=== PATIENT | female | born 1955 | race Caucasian/White ===

== ENCOUNTER 2016-10-20 06:44 | Day surgery (SDC) | payer OTHER ==
[2016-10-17 15:53] VITALS: BMI 27.4
[~2016-10-20 06:44] MED LIST: LACTATED RINGERS 1,000 ML IV SCH; LIDOCAINE 1% 20 ML VIAL (10MG/ML) FOR IV START INTRADERMA PRN
[2016-10-20 07:11] VITALS: TEMP 98
[2016-10-20] MEDS ORDERED: LACTATED RINGERS 1,000 ML IV ONE (07:21)
[2016-10-20] MEDS ORDERED: LIDOCAINE 1% 20 ML VIAL (10MG/ML) FOR IV START INTRADERMA ONE (07:22)
[2016-10-20 07:25] LABS: Glucose,Whole Blood 195 mg/dL (75-99)
[2016-10-20] MEDS ORDERED: ONDANSETRON 4 MG/2 ML VIAL IVP ONE (07:37)
[2016-10-20] MEDS ORDERED: PROPOFOL 10 MG/ML 20 ML VIAL IV ONE (07:54)
--- NOTE | 2016-10-20 08:18 | P.PCN ---
Date of Procedure: 10/20/16 Procedure(s) Performed: BRIEF HISTORY: Patient is a 60-year-old pleasant white female, scheduled for an elective colonoscopy as a part of screening for colorectal neoplasia. She does have family history of colon cancer diagnosed in her father at age 60. Her last colonoscopy was 6 years ago. PROCEDURE PERFORMED: Colonoscopy with snare polypectomy. PREOPERATIVE DIAGNOSIS: Screening for colon cancer and family history of colon cancer. IV sedation per Anesthesia. PROCEDURE: After informed consent was obtained, the patient, was brought into the endoscopy unit. IV conscious sedation was administered by Anesthesia under continuous monitoring. Digital rectal examination was normal Initially the Olympus CF-160 flexible video colonoscope was then inserted in the rectum, gradually advanced into the cecum without any difficulty. Careful examination was performed as the scope was gradually being withdrawn. Ileocecal valve and the appendiceal orifice were visualized and appeared normal. Prep was excellent. Mucosa of the cecum appeared normal. In the ascending colon there was a 1 polyp removed by snare polypectomy. Rest of the, ascending colon, transverse colon, descending colon, sigmoid colon, and rectum appeared normal. Retroflexion was performed in the rectum and no lesions were seen. Scattered sigmoid diverticulosis seen. The patient tolerated the procedure well. IMPRESSION: 1 in mid ascending colon polyp status post polypectomy Scattered sigmoid diverticulosis. Rest of the colon appeared normal. RECOMMENDATIONS: Findings of this examination were discussed with the patient as well as a family. Advised to follow with the biopsy results. If the biopsies revealed a tubular adenoma she can have a repeat colonoscopy in 5 years.
[2016-10-20 08:25] VITALS: RESP 18
[2016-10-20 08:56] LABS: Glucose,Whole Blood 190 mg/dL (75-99)
[2016-10-20 09:22] VITALS: BP 122/70; PULSE 80
== END 2016-10-20 09:25 | disposition home or self-care (01) ==
LOC: ORWHC2ENDO 06:44
PROVIDERS: ATTEND Internal Medicine Gastroenterology
DX: Z12.11 Encounter for screening for malignant neoplasm of colon (principal); D12.2 Benign neoplasm of ascending colon; K57.30 Diverticulosis of large intestine without perforation or abscess without bleeding; I10 Essential (primary) hypertension; E78.5 Hyperlipidemia, unspecified; E11.9 Type 2 diabetes mellitus without complications; E07.9 Disorder of thyroid, unspecified; K21.9 Gastro-esophageal reflux disease without esophagitis; Z80.0 Family history of malignant neoplasm of digestive organs; Z88.2 Allergy status to sulfonamides; Z79.82 Long term (current) use of aspirin; Z79.84 Long term (current) use of oral hypoglycemic drugs; Z79.4 Long term (current) use of insulin; Z79.83 Long term (current) use of bisphosphonates; Z79.899 Other long term (current) drug therapy
CPT/HCPCS: 88305; 45385; J2405; J2704; 99153

== ENCOUNTER 2017-05-18 10:15 | Emergency (ER) | payer MEDICARE, OTHER ==
[2017-05-18 10:25] VITALS: RESP 20
--- NOTE | 2017-05-18 10:40 | ED ---
General Adult HPI - General Chief complaint: Urogenital Stated complaint: poss uti Time Seen by Provider: 05/18/17 10:25 Source: patient, RN notes reviewed Mode of arrival: ambulatory Limitations: no limitations - History of Present Illness Initial comments: Patient 61-year-old female who presents emergency room today with a chief complaint of increased pressure on urination this morning. Does admit to slight burning sensation. She has admit that she got up and right bathroom a few times. She states this is not completely unusual for her. Patient does not that she's had urinary tract infection. Gestation worried about this this morning. Patient denies any other complaints or associated symptoms at this time. Patient denies any recent fever, chills, shortness of breath, chest pain, back pain, abdominal pain, nausea or vomiting, numbness or tingling, dysuria or hematuria, constipation or diarrhea, headaches or visual changes, or any other complaints. - Related Data Home Medications Medication Instructions Recorded Confirmed Ascorbic Acid [Vitamin C] 1,000 mg PO BID 01/12/16 05/18/17 Aspirin 325 mg PO HS 01/12/16 05/18/17 Benazepril HCl 20 mg PO DAILY 01/12/16 05/18/17 Calcium 315 mg PO TID 01/12/16 05/18/17 Cholecalciferol [Vitamin D3] 1,000 unit PO HS 01/12/16 05/18/17 Cyanocobalamin [Vitamin B-12 1,000 mcg SQ QMONTH 01/12/16 05/18/17 Injection] Docusate [Colace] 200 mg PO 01/12/16 05/18/17 Dubicaine 1% Ointment 1 applic RECTAL DAILY PRN 01/12/16 05/18/17 Eucerin 1 applic TOPICAL DAILY PRN 01/12/16 05/18/17 Ibandronate Sodium [Boniva] 150 mg PO QMONTH 01/12/16 05/18/17 Insulin Glargine [Lantus] 25 unit SQ HS 01/12/16 05/18/17 Ketotifen 0.025% Ophth Soln 1 drop BOTH EYES BID PRN 01/12/16 05/18/17 [Zaditor] Levothyroxine Sodium [Synthroid] 100 mcg PO DAILY 01/12/16 05/18/17 Mupirocin 2% Oint [Bactroban 2% 1 applic TOPICAL DAILY PRN 01/12/16 05/18/17 Oint] Pantoprazole Sodium [Protonix] 40 mg PO DAILY 01/12/16 05/18/17 Polyethylene Glycol 3350 [Miralax] 25.5 gm PO DAILY 01/12/16 05/18/17 Pregabalin [Lyrica] 75 mg PO TID 01/12/16 05/18/17 Saxagliptin HCl [Onglyza] 5 mg PO DAILY 01/12/16 05/18/17 Simvastatin [Zocor] 80 mg PO HS 01/12/16 05/18/17 Solifenacin Succinate [Vesicare] 10 mg PO DAILY@1200 01/12/16 05/18/17 Tretinoin 1 applic TOPICAL HS 01/12/16 05/18/17 amLODIPine [Norvasc] 10 mg PO QAM 01/12/16 05/18/17 glipiZIDE [Glucotrol] 5 mg PO AC-BRKFST 01/12/16 05/18/17 glipiZIDE [Glucotrol] 10 mg PO AC-BID@1200,1800 01/12/16 05/18/17 metFORMIN HCL [Glucophage] 1,000 mg PO BID 01/12/16 05/18/17 Betamethasone Dipropionate 1 applic TOPICAL BID 05/18/17 05/18/17 [Betamethasone Dipropionate 0.05%] Clobetasol Propionate [Temovate 1 applic TOPICAL DAILY PRN 05/18/17 05/18/17 0.05% Cream] Cyclobenzaprine [Flexeril] 5 mg PO HS PRN 05/18/17 05/18/17 Ferrous Gluconate 324 mg PO TID 05/18/17 05/18/17 Hydrocortisone Cream 1 applic TOPICAL BID PRN 05/18/17 05/18/17 [Hydrocortisone 2.5% Cream] [place]-3 Fatty Acids/Fish Oil [Fish 1 cap PO DAILY@1200 05/18/17 05/18/17 Oil 1,000 mg Softgel] Polyvinyl 1 drop BOTH EYES DAILY PRN 05/18/17 05/18/17 Venlafaxine HCl [Effexor XR] 225 mg PO DAILY 05/18/17 05/18/17 hydrOXYzine PAMOATE [Vistaril] 25 mg PO HS 05/18/17 05/18/17 Previous Rx's Medication Instructions Recorded Nitrofurantoin Monohyd/M-Cryst 100 mg PO Q12HR #14 cap 05/18/17 [Macrobid] Phenazopyridine [Pyridium] 100 mg PO TID 3 Days 05/18/17 Tamsulosin [Flomax] 0.4 mg PO DAILY #10 cap 05/18/17 Allergies Allergy/AdvReac Type Severity Reaction Status Date / Time Sulfa (Sulfonamide AdvReac Rash/Hives Verified 05/18/17 10:34 Antibiotics) sulfamethoxazole AdvReac Rash/Hives Verified 05/18/17 10:34 [From Bactrim] trimethoprim [From Bactrim] AdvReac Rash/Hives Verified 05/18/17 10:34 Review of Systems ROS Statement: Those systems with pertinent positive or pertinent negative responses have been documented in the HPI. ROS Other: All systems not noted in ROS Statement are negative. Past Medical History Past Medical History: Diabetes Mellitus, GERD/Reflux, Hyperlipidemia, Hypertension, Thyroid Disorder Additional Past Medical History / Comment(s): kidney stones; non healing wounds R shoulder History of Any Multi-Drug Resistant Organisms: MRSA Date of last positivie culture/infection: 2015 MDRO Source:: buttock Past Surgical History: Cholecystectomy, Hysterectomy, Tonsillectomy Additional Past Surgical History / Comment(s): lithotripsy; colonoscopies; cataracts Past Anesthesia/Blood Transfusion Reactions: Motion Sickness, Postoperative Nausea & Vomiting (PONV) Past Psychological History: Anxiety, Depression Smoking Status: Never smoker Past Alcohol Use History: None Reported Past Drug Use History: None Reported - Past Family History Father Family Medical History: Cancer General Exam - General Exam Comments Initial Comments: General: The patient is awake and alert, in no distress, and does not appear acutely ill. Eye: Pupils are equal, round and reactive to light, extra-ocular movements are intact. No nystagmus. There is normal conjunctiva bilaterally. No signs of icterus. Ears, nose, mouth and throat: There are moist mucous membranes and no oral lesions. Neck: The neck is supple, there is no tenderness or JVD. Cardiovascular: There is a regular rate and rhythm. No murmur, rub or gallop is appreciated. Respiratory: Lungs are clear to auscultation, respirations are non-labored, breath sounds are equal. No wheezes, stridor, rales, or rhonchi. Gastrointestinal: Soft, non-distended, non-tender abdomen without masses or organomegaly noted. There is no rebound or guarding present. No CVA tenderness. Bowel sounds are unremarkable. Musculoskeletal: Normal ROM, no tenderness. Strength 5/5. Sensation intact. Pulses equal bilaterally 2+. Neurological: A&O x 3. CN II-XII intact, There are no obvious motor or sensory deficits. Coordination appears grossly intact. Speech is normal. Skin: Skin is warm and dry and no rashes or lesions are noted. Psychiatric: Cooperative, appropriate mood & affect, normal judgment. Limitations: no limitations Course Vital Signs 05/18/17 10:23 Temperature 97.6 F Pulse Rate 95 Respiratory 20 Rate Blood Pressure 159/72 O2 Sat by Pulse 98 Oximetry Medical Decision Making - Medical Decision Making Patient reexamined at this time shows no signs of distress. Her urinalysis reviewed does show some red cells. No sign of infection at this time. Patient does admit to increased pressure. She admits to history of kidney stones. She states feels somewhat similar. She is currently comfortable. States she is comfortable being discharged home without any further workup. We cover for kidney stone placed on Flomax first issue use ibuprofen for pain as 800 mg at home. Patient will be given antibiotics cover for possible cystitis or infection along with ibuprofen for her symptoms. She is advised follow-up the urologist over the next 2 days return here to the emergency room for any symptoms increase or worsen. Patient states understanding and is in agreement. - Lab Data Lab Results 05/18/17 Range/Units 10:20 Urine Color Yellow Urine Appearance Clear (Clear) Urine pH 5.5 (5.0-8.0) Ur Specific [place] 1.016 (1.001-1.035) Urine Protein Trace H (Negative) Urine Glucose (UA) 2+ H (Negative) Urine Ketones Trace H (Negative) Urine Blood Small H (Negative) Urine Nitrite Negative (Negative) Urine Bilirubin Negative (Negative) Urine Urobilinogen <2.0 (<2.0) mg/dL Ur Leukocyte Esterase Negative (Negative) Urine RBC 27 H (0-5) /hpf Urine WBC 1 (0-5) /hpf Urine Mucus Rare H (None) /hpf Disposition Clinical Impression: Kidney stone Disposition: HOME SELF-CARE Condition: Good Instructions: Kidney Stones (ED) Additional Instructions: Please use medication as discussed. Please follow-up with family doctor in the next 2 days of symptoms have not improved. Please return to emergency room if the symptoms increase or worsen or for any other concerns. Prescriptions: Nitrofurantoin Monohyd/M-Cryst [Macrobid] 100 mg PO Q12HR #14 cap Phenazopyridine [Pyridium] 100 mg PO TID 3 Days Tamsulosin [Flomax] 0.4 mg PO DAILY #10 cap Referrals: Fuad Dickens DO [Primary Care Provider] - 1-2 days Time of Disposition: 11:27
[2017-05-18 10:42] LABS: Appearance,Urine Clear (Clear); Bilirubin,Urine Negative (Negative); Glucose,Urine (UA) 2+ (Negative); Ketones,Urine Trace (Negative); Leukocyte Esterase,Urine Negative (Negative); Mucus,Urine Rare /hpf; Nitrite,Urine Negative (Negative); PH, Urine 5.5 (5.0-8.0); Particle Count 792; Protein,Urine Trace (Negative); RBC,Urine 27 /hpf (0-5); Specific Gravity,Urine 1.016 (1.001-1.035); UA Billing (MACRO vs. MICRO) MICRO; Urobilinogen,Urine <2.0 mg/dL (<2.0); WBC,Urine 1 /hpf (0-5)
[2017-05-18 11:42] VITALS: BP 131/66; PULSE 86; TEMP 98.5
== END 2017-05-18 11:42 | disposition home or self-care (01) ==
LOC: EC 10:15
DX: N20.0 Calculus of kidney (principal); E11.9 Type 2 diabetes mellitus without complications; K21.9 Gastro-esophageal reflux disease without esophagitis; E78.5 Hyperlipidemia, unspecified; I10 Essential (primary) hypertension; E07.9 Disorder of thyroid, unspecified; F41.9 Anxiety disorder, unspecified; F32.9 Major depressive disorder, single episode, unspecified; Z79.4 Long term (current) use of insulin; Z86.14 Personal history of Methicillin resistant Staphylococcus aureus infection; Z79.82 Long term (current) use of aspirin; Z79.899 Other long term (current) drug therapy; Z88.2 Allergy status to sulfonamides
CPT/HCPCS: 81001; 87086; 99283

== ENCOUNTER → 2017-06-12 | Outpatient (CLI) | payer MEDICARE, OTHER ==
--- NOTE | 2017-06-12 10:52 | XR ---
EXAMINATION TYPE: XR abdomen 1V DATE OF EXAM: 06/12/2017 HISTORY: Pain Comparison: None. Single KUB is submitted for interpretation. Findings: Right renal calculi: None Visualized. Right ureteral calculi: None Visualized. Left renal calculi: None Visualized. Left ureteral calculi: None Visualized. Pelvic calcifications: None Visualized. Bowel gas pattern is unremarkable. No free air. No mass effects. IMPRESSION: 1. No visible calcification at this time.
== END ==
LOC: RADXRMAIN 10:22
PROVIDERS: ATTEND Urology
DX: N20.1 Calculus of ureter (principal)
CPT/HCPCS: 74000

== ENCOUNTER → 2017-12-26 | Outpatient (CLI) | payer OTHER ==
--- NOTE | 2017-12-28 13:38 | MM ---
Reason for exam: screening (asymptomatic). Last mammogram was performed 1 year and 4 months ago. History: Patient is postmenopausal and is nulliparous. Benign excisional biopsy of the right breast, 1990. Physical Findings: A clinical breast exam by your physician is recommended on an annual basis and results should be correlated with mammographic findings. MG Screening Mammo w CAD Bilateral CC and MLO view(s) were taken. Prior study comparison: September 07, 2016, mammogram, performed at [place]. The breast tissue is heterogeneously dense. This may lower the sensitivity of mammography. There is no discrete abnormality. No significant changes when compared with prior studies. ASSESSMENT: Negative, BI-RAD 1 RECOMMENDATION: Routine screening mammogram of both breasts in 1 year.
== END | disposition home or self-care (01) ==
LOC: RADMAMWWP 09:54
DX: Z12.31 Encounter for screening mammogram for malignant neoplasm of breast (principal)
CPT/HCPCS: 77067

== ENCOUNTER 2018-06-20 10:13 | Emergency (ER) | payer MEDICARE, OTHER ==
[2018-06-20 10:30] VITALS: TEMP 98.2
[2018-06-20] MEDS ORDERED: FAMOTIDINE 20 MG/2 ML VIAL IV STA (10:55)
[2018-06-20] MEDS ORDERED: ONDANSETRON 4 MG/2 ML VIAL IVP STA (10:55)
[2018-06-20] MEDS ORDERED: SODIUM CHLORIDE 0.9% 1,000 ML IV STA (10:55)
--- NOTE | 2018-06-20 11:01 | ED ---
Nausea/Vomiting/Diarrhea HPI - General Chief complaint: Nausea/Vomiting/Diarrhea Stated complaint: Nausea Time Seen by Provider: 06/20/18 10:36 Source: patient, RN notes reviewed Mode of arrival: ambulatory Limitations: no limitations - History of Present Illness Initial comments: This is a 62-year-old female presents to the emergency Department chief complaint of nausea. Patient states that she's had symptoms for last 4 days. Patient states only thing new is that they increase her ALLERGY injections. She states is her primary for seasonal ALLERGIES and a few food ALLERGIES. Patient states that she has not vomited but she's had extreme nausea and pain in her mid abdomen. Patient states that she's also had severe diarrhea yesterday and the day before. Patient denies any melena or hematochezia. Patient states that she does have acid reflux has been taking her medication but has not helped. Denies any chest pain or shortness breath. She states she feels rundown, has had some night sweats but denies any known fever. Patient has no dysuria or hematuria at this time. - Related Data Home Medications Medication Instructions Recorded Confirmed Ascorbic Acid [Vitamin C] 1,000 mg PO BID 01/12/16 06/20/18 Aspirin 325 mg PO HS 01/12/16 06/20/18 Benazepril HCl 20 mg PO DAILY 01/12/16 06/20/18 Calcium 315 mg PO TID 01/12/16 06/20/18 Cholecalciferol [Vitamin D3] 2,000 unit PO 01/12/16 06/20/18 Cyanocobalamin [Vitamin B-12 1,000 mcg SQ QMONTH 01/12/16 06/20/18 Injection] Docusate [Colace] 200 mg PO HS 01/12/16 06/20/18 Dubicaine 1% Ointment 1 applic RECTAL DAILY PRN 01/12/16 06/20/18 Ibandronate Sodium [Boniva] 150 mg PO QMONTH 01/12/16 06/20/18 Insulin Glargine [Lantus] 25 unit SQ HS 01/12/16 06/20/18 Ketotifen 0.025% Ophth Soln 1 drop BOTH EYES BID PRN 01/12/16 06/20/18 [Zaditor] Levothyroxine Sodium [Synthroid] 100 mcg PO DAILY 01/12/16 06/20/18 Mupirocin 2% Oint [Bactroban 2% 1 applic TOPICAL DAILY PRN 01/12/16 06/20/18 Oint] Pantoprazole Sodium [Protonix] 40 mg PO DAILY 01/12/16 06/20/18 Polyethylene Glycol 3350 [Miralax] 25.5 gm PO DAILY 01/12/16 06/20/18 Saxagliptin HCl [Onglyza] 5 mg PO DAILY 01/12/16 06/20/18 Solifenacin Succinate [Vesicare] 10 mg PO DAILY@1200 01/12/16 06/20/18 Tretinoin 1 applic TOPICAL HS 01/12/16 06/20/18 amLODIPine [Norvasc] 10 mg PO QAM 01/12/16 06/20/18 metFORMIN HCL [Glucophage] 1,000 mg PO BID 01/12/16 06/20/18 Betamethasone Dipropionate 1 applic TOPICAL BID 05/18/17 06/20/18 [Betamethasone Dipropionate 0.05%] Cyclobenzaprine [Flexeril] 5 mg PO HS PRN 05/18/17 06/20/18 Ferrous Gluconate 324 mg PO TID 05/18/17 06/20/18 Hydrocortisone Cream 1 applic TOPICAL BID PRN 05/18/17 06/20/18 [Hydrocortisone 2.5% Cream] [place]-3 Fatty Acids/Fish Oil [Fish 1 cap PO DAILY@1200 05/18/17 06/20/18 Oil 1,000 mg Softgel] Polyvinyl 1 drop BOTH EYES DAILY PRN 05/18/17 06/20/18 Eylea Aflibercept Inj- Unknown 1 injection INTRAOCULA Q56D 06/20/18 06/20/18 Insulin Glargine [Lantus] 16 unit SQ DAILY 06/20/18 06/20/18 Pregabalin [Lyrica] 100 mg PO TID 06/20/18 06/20/18 Previous Rx's Medication Instructions Recorded Ondansetron Odt [Zofran Odt] 4 mg PO Q8HR PRN #10 tab 06/20/18 Allergies Allergy/AdvReac Type Severity Reaction Status Date / Time Sulfa (Sulfonamide AdvReac Rash/Hives Verified 06/20/18 11:51 Antibiotics) sulfamethoxazole AdvReac Rash/Hives Verified 06/20/18 11:51 [From Bactrim] trimethoprim [From Bactrim] AdvReac Rash/Hives Verified 06/20/18 11:51 Review of Systems ROS Statement: Those systems with pertinent positive or pertinent negative responses have been documented in the HPI. ROS Other: All systems not noted in ROS Statement are negative. Past Medical History Past Medical History: Diabetes Mellitus, GERD/Reflux, Hyperlipidemia, Hypertension, Thyroid Disorder Additional Past Medical History / Comment(s): kidney stones; non healing wounds R shoulder History of Any Multi-Drug Resistant Organisms: MRSA Date of last positivie culture/infection: 2015 MDRO Source:: buttock Past Surgical History: Cholecystectomy, Hysterectomy, Tonsillectomy Additional Past Surgical History / Comment(s): lithotripsy; colonoscopies; cataracts Past Anesthesia/Blood Transfusion Reactions: Motion Sickness, Postoperative Nausea & Vomiting (PONV) Past Psychological History: Anxiety, Depression Smoking Status: Never smoker Past Alcohol Use History: None Reported Past Drug Use History: None Reported - Past Family History Father Family Medical History: Cancer General Exam Limitations: no limitations General appearance: alert, in no apparent distress Head exam: Present: atraumatic, normocephalic, normal inspection Neck exam: Present: normal inspection, full ROM. Absent: tenderness, meningismus, lymphadenopathy Respiratory exam: Present: normal lung sounds bilaterally. Absent: respiratory distress, wheezes, rales, rhonchi, stridor Cardiovascular Exam: Present: regular rate, normal rhythm, normal heart sounds. Absent: systolic murmur, diastolic murmur, rubs, gallop, clicks GI/Abdominal exam: Present: soft, tenderness (Minimal mid abdominal), normal bowel sounds. Absent: distended, guarding, rebound, rigid Back exam: Absent: CVA tenderness (R), CVA tenderness (L) Skin exam: Present: warm, dry, intact, normal color. Absent: rash Course Vital Signs 06/20/18 06/20/18 10:27 12:59 Temperature 98.2 F Pulse Rate 90 98 Respiratory 20 18 Rate Blood Pressure 133/76 135/78 O2 Sat by Pulse 99 98 Oximetry Medical Decision Making - Medical Decision Making 62-year-old female presents emergency department for nausea. Patient had lab work and urinalysis which is unremarkable. Patient is better after antiemetics. This most likely related to viral illness. Patient we discharged with antiemetics and return parameters were discussed. - Lab Data Result diagrams: 06/20/18 11:13 06/20/18 11:13 Lab Results 06/20/18 06/20/18 06/20/18 Range/Units 11:13 11:13 11:13 WBC 8.6 (3.8-10.6) k/uL RBC 4.81 (3.80-5.40) m/uL Hgb 14.3 (11.4-16.0) gm/dL Hct 43.8 (34.0-46.0) % MCV 91.2 (80.0-100.0) fL MCH 29.6 (25.0-35.0) pg MCHC 32.5 (31.0-37.0) g/dL RDW 14.5 (11.5-15.5) % Plt Count 241 (150-450) k/uL Neutrophils % 76 % Lymphocytes % 16 % Monocytes % 5 % Eosinophils % 2 % Basophils % 0 % Neutrophils # 6.6 (1.3-7.7) k/uL Lymphocytes # 1.3 (1.0-4.8) k/uL Monocytes # 0.4 (0-1.0) k/uL Eosinophils # 0.1 (0-0.7) k/uL Basophils # 0.0 (0-0.2) k/uL Sodium 142 (137-145) mmol/L Potassium 4.2 (3.5-5.1) mmol/L Chloride 104 (98-107) mmol/L Carbon Dioxide 27 (22-30) mmol/L Anion Gap 11 mmol/L BUN 11 (7-17) mg/dL Creatinine 0.69 (0.52-1.04) mg/dL Est GFR (CKD-EPI)AfAm >90 (>60 ml/min/1.73 sqM) Est GFR (CKD-EPI)NonAf >90 (>60 ml/min/1.73 sqM) Glucose 142 H (74-99) mg/dL Calcium 10.1 (8.4-10.2) mg/dL Total Bilirubin 0.5 (0.2-1.3) mg/dL AST 30 (14-36) U/L ALT 39 (9-52) U/L Alkaline Phosphatase 76 (38-126) U/L Troponin I <0.012 (0.000-0.034) ng/mL Total Protein 7.7 (6.3-8.2) g/dL Albumin 4.7 (3.5-5.0) g/dL Amylase 37 (30-110) U/L Lipase 39 (23-300) U/L Urine Color Urine Appearance (Clear) Urine pH (5.0-8.0) Ur Specific [place] (1.001-1.035) Urine Protein (Negative) Urine Glucose (UA) (Negative) Urine Ketones (Negative) Urine Blood (Negative) Urine Nitrite (Negative) Urine Bilirubin (Negative) Urine Urobilinogen (<2.0) mg/dL Ur Leukocyte Esterase (Negative) Urine RBC (0-5) /hpf Urine WBC (0-5) /hpf Ur Squamous Epith Cells (0-4) /hpf Amorphous Sediment (None) /hpf Urine Bacteria (None) /hpf Urine Mucus (None) /hpf 06/20/18 Range/Units 12:10 WBC (3.8-10.6) k/uL RBC (3.80-5.40) m/uL Hgb (11.4-16.0) gm/dL Hct (34.0-46.0) % MCV (80.0-100.0) fL MCH (25.0-35.0) pg MCHC (31.0-37.0) g/dL RDW (11.5-15.5) % Plt Count (150-450) k/uL Neutrophils % % Lymphocytes % % Monocytes % % Eosinophils % % Basophils % % Neutrophils # (1.3-7.7) k/uL Lymphocytes # (1.0-4.8) k/uL Monocytes # (0-1.0) k/uL Eosinophils # (0-0.7) k/uL Basophils # (0-0.2) k/uL Sodium (137-145) mmol/L Potassium (3.5-5.1) mmol/L Chloride (98-107) mmol/L Carbon Dioxide (22-30) mmol/L Anion Gap mmol/L BUN (7-17) mg/dL Creatinine (0.52-1.04) mg/dL Est GFR (CKD-EPI)AfAm (>60 ml/min/1.73 sqM) Est GFR (CKD-EPI)NonAf (>60 ml/min/1.73 sqM) Glucose (74-99) mg/dL Calcium (8.4-10.2) mg/dL Total Bilirubin (0.2-1.3) mg/dL AST (14-36) U/L ALT (9-52) U/L Alkaline Phosphatase (38-126) U/L Troponin I (0.000-0.034) ng/mL Total Protein (6.3-8.2) g/dL Albumin (3.5-5.0) g/dL Amylase (30-110) U/L Lipase (23-300) U/L Urine Color Light Yellow Urine Appearance Cloudy H (Clear) Urine pH 7.5 (5.0-8.0) Ur Specific [place] 1.007 (1.001-1.035) Urine Protein Negative (Negative) Urine Glucose (UA) Negative (Negative) Urine Ketones 1+ H (Negative) Urine Blood Negative (Negative) Urine Nitrite Negative (Negative) Urine Bilirubin Negative (Negative) Urine Urobilinogen <2.0 (<2.0) mg/dL Ur Leukocyte Esterase Negative (Negative) Urine RBC 2 (0-5) /hpf Urine WBC 6 H (0-5) /hpf Ur Squamous Epith Cells <1 (0-4) /hpf Amorphous Sediment Rare H (None) /hpf Urine Bacteria Rare H (None) /hpf Urine Mucus Occasional H (None) /hpf Disposition Clinical Impression: Nausea, Diarrhea Disposition: TRANSFER TO PSYCH HOSP/UNIT Condition: Stable Instructions: Acute Nausea and Vomiting (ED) Additional Instructions: Please return to the Emergency Department if symptoms worsen or any other concerns. Prescriptions: Ondansetron Odt [Zofran Odt] 4 mg PO Q8HR PRN #10 tab PRN Reason: Nausea Is patient prescribed a controlled substance at d/c from ED?: No Referrals: [facility] [Primary Care Provider] - 1-2 days Time of Disposition: 13:39
[2018-06-20 11:37] LABS: Basophils % (A) 0 %; Eosinophils # (A) 0.1 k/uL (0-0.7); Eosinophils % (A) 2 %; HCT 43.8 % (34.0-46.0); HGB 14.3 gm/dL (11.4-16.0); Lymphocytes # (A) 1.3 k/uL (1.0-4.8); Lymphocytes % (A) 16 %; MCH 29.6 pg (25.0-35.0); MCHC 32.5 g/dL (31.0-37.0); MCV 91.2 fL (80.0-100.0); Mean Platelet Volume 7.5; Monocytes # (A) 0.4 k/uL (0-1.0); Monocytes % (A) 5 %; Neutrophils # (A) 6.6 k/uL (1.3-7.7); Neutrophils % (A) 76 %; Platelet Count 241 k/uL (150-450); RBC 4.81 m/uL (3.80-5.40); RDW 14.5 % (11.5-15.5); WBC 8.6 k/uL (3.8-10.6)
[2018-06-20 11:48] LABS: ALT 39 U/L (9-52); AST 30 U/L (14-36); Albumin 4.7 g/dL (3.5-5.0); Alkaline Phosphatase 76 U/L (38-126); Amylase 37 U/L (30-110); Anion Gap 11 mmol/L; Blood Urea Nitrogen 11 mg/dL (7-17); Calcium 10.1 mg/dL (8.4-10.2); Carbon Dioxide 27 mmol/L (22-30); Chloride 104 mmol/L (98-107); Glucose 142 mg/dL (74-99); Lipase 39 U/L (23-300); Potassium 4.2 mmol/L (3.5-5.1); Sodium 142 mmol/L (137-145); Total Bilirubin 0.5 mg/dL (0.2-1.3); Total Protein 7.7 g/dL (6.3-8.2)
[2018-06-20 13:01] VITALS: BP 135/78; PULSE 98; RESP 18
[2018-06-20] MEDS ORDERED: METOCLOPRAMIDE 5 MG/ML 2 ML VIAL IVP STA (13:06)
[2018-06-20] MEDS ORDERED: diphenhydrAMINE 50 MG/ML 1 ML VIAL IVP STA (13:06)
[2018-06-20 13:09] LABS: Amorphous Sediment,Urine Rare /hpf; Appearance,Urine Cloudy (Clear); Bacteria,Urine Rare /hpf; Bilirubin,Urine Negative (Negative); Blood,Urine Negative (Negative); Color,Urine Light Yellow; Glucose,Urine (UA) Negative (Negative); Ketones,Urine 1+ (Negative); Leukocyte Esterase,Urine Negative (Negative); Mucus,Urine Occasional /hpf; Nitrite,Urine Negative (Negative); PH, Urine 7.5 (5.0-8.0); Protein,Urine Negative (Negative); RBC,Urine 2 /hpf (0-5); Specific Gravity,Urine 1.007 (1.001-1.035); Squamous Epithelial Cell,Urine <1 /hpf (0-4); Urobilinogen,Urine <2.0 mg/dL (<2.0); WBC,Urine 6 /hpf (0-5)
[2018-06-20] MEDS ORDERED: ONDANSETRON 4 MG ODT STARTER PACK 2 TAB BTL PO STA (13:39)
== END 2018-06-20 13:51 | disposition home or self-care (01) ==
LOC: EC 10:13
DX: R19.7 Diarrhea, unspecified (principal); R11.0 Nausea; R10.9 Unspecified abdominal pain; E11.9 Type 2 diabetes mellitus without complications; K21.9 Gastro-esophageal reflux disease without esophagitis; E78.5 Hyperlipidemia, unspecified; I10 Essential (primary) hypertension; E07.9 Disorder of thyroid, unspecified; F32.9 Major depressive disorder, single episode, unspecified; F41.9 Anxiety disorder, unspecified; Z86.14 Personal history of Methicillin resistant Staphylococcus aureus infection; Z79.4 Long term (current) use of insulin; Z79.82 Long term (current) use of aspirin; Z79.899 Other long term (current) drug therapy; Z88.2 Allergy status to sulfonamides; Z90.49 Acquired absence of other specified parts of digestive tract
CPT/HCPCS: 36415; 93005; 80053; 82150; 83690; 84484; 85025; 81001; 99284; 96374; 96375 ×3; 96361 ×3; J1200; J2765; J2405; S0119

== ENCOUNTER 2018-10-04 06:56 | Day surgery (SDC) | payer MEDICARE, OTHER ==
[2018-10-02 10:06] VITALS: BMI 27.4
[2018-10-04] MEDS ORDERED: ONDANSETRON 4 MG/2 ML VIAL IVP STA (07:18)
[2018-10-04 07:27] VITALS: TEMP 97.1
[2018-10-04] MEDS ORDERED: ONDANSETRON 4 MG/2 ML VIAL IVP ONE (07:27)
[2018-10-04 07:40] LABS: Glucose,Whole Blood 151 mg/dL (75-99)
[2018-10-04] MEDS ORDERED: PROPOFOL 10 MG/ML 20 ML VIAL IV ONE (07:41)
--- NOTE | 2018-10-04 08:02 | P.PCN ---
Date of Procedure: 10/04/18 Procedure(s) Performed: BRIEF HISTORY: Patient is a 62-year-old, pleasant, white female, scheduled for an upper endoscopy as a part of value should of long-standing history of GERD of 20 years duration. She is maintained on Protonix 40 mg daily and lately has been having breakthrough symptoms. She is scheduled for an upper endoscopy to rule out complicated reflux disease. PROCEDURE PERFORMED: Esophagogastroduodenoscopy. PREOPERATIVE DIAGNOSIS: long-standing history of GERD IV sedation per anesthesia. PROCEDURE: After informed consent was obtained, the patient was brought into the endoscopy unit. IV sedation was administered by Anesthesia under continuous monitoring. Initially the Olympus GIF-140 video endoscope was inserted into the mouth. Esophagus intubated without any difficulty. It was gradually advanced into the stomach and duodenum and carefully examined. The bulb and the second part of the duodenum appeared normal. The scope at this time was withdrawn to the stomach, adequately insufflated with air, and upon careful examination, mucosa of the antrum had mild gastritis and biopsies were done from this area. The body, cardia and the fundus appeared normal. The scope was then withdrawn into the esophagus. The GE junction was located at 37 cm from the incisors. it appeared irregular and there was a short segment that esophagus extending 2-3 mm proximal to the GE junction which was biopsied. The rest of the esophagus appeared normal. There were no erosions or ulcerations seen and the patient tolerated the procedure well. IMPRESSION: 1. Mild antral gastritis. 2. Irregular GE junction with questionable short segment Graff's esophagus status post biopsy. RECOMMENDATIONS: The findings of this examination were discussed with the patient as well as her family. She was advised to follow with the biopsy results. She will continue with Protonix 40 mg daily and follow antireflux measures.
[2018-10-04 08:28] VITALS: BP 117/76; PULSE 76; RESP 18
== END 2018-10-04 08:46 | disposition home or self-care (01) ==
LOC: ORWHC2ENDO 06:56
PROVIDERS: ATTEND Internal Medicine Gastroenterology
DX: K29.50 Unspecified chronic gastritis without bleeding (principal); K21.9 Gastro-esophageal reflux disease without esophagitis; E11.9 Type 2 diabetes mellitus without complications; E07.9 Disorder of thyroid, unspecified; G47.33 Obstructive sleep apnea (adult) (pediatric); I10 Essential (primary) hypertension; E78.5 Hyperlipidemia, unspecified; Z79.890 Hormone replacement therapy; Z79.4 Long term (current) use of insulin; Z88.2 Allergy status to sulfonamides; Z99.89 Dependence on other enabling machines and devices; Z79.82 Long term (current) use of aspirin; Z79.899 Other long term (current) drug therapy
CPT/HCPCS: 88305; 43239; J2405; J2704

== ENCOUNTER → 2018-11-28 | Outpatient (CLI) | payer OTHER ==
--- NOTE | 2018-11-28 10:59 | NM ---
EXAMINATION TYPE: NM stress lexiscan cardiolite DATE OF EXAM: 11/28/2018 COMPARISON: NONE HISTORY: Precordial chest pain and abnormal EKG. TECHNIQUE: After the intravenous administration of 9.9 mCi Tc 99m Sestamibi - Cardiolite resting SPE CT images acquired 45 minutes post injection. The patient received 0.4mg Lexiscan, 26.1 mCi Tc 99m Sestamibi - Stress images obtained [address] injection FINDINGS: Review of stress and rest SPECT images demonstrates no distinct perfusion abnormality. Gated analysi s shows normal wall motion with an estimated left ventricular ejection fraction of 57 %. IMPRESSION: No scintigraphic evidence for reversible ischemia.
--- NOTE | 2018-11-28 13:01 | EST ---
EXERCISE STRESS AGE: 63 SEX: F HT: 63" WT: 151 PROTOCOL: Lexiscan Cardiolite Stress Test HEART RATE REST: 78 BLOOD PRESSURE REST: 127/74 MAXIMUM HEART RATE ACHIEVED: 109 MAXIMUM BLOOD PRESSURE: 147/70 85% MPHR: 132 100% MPHR: 155 INDICATIONS: Hypertension. CLINICAL INFORMATION: Patient was given Lexiscan injection over a period of 15 seconds. The peak heart rate of 109 was achieved. Maximum blood pressure of 147/70 mmHg is noted. The resting EKG shows normal sinus rhythm with normal OH interval and QRS duration and normal ST-T waves. No ST-segment depression suggestive of ischemia was noted. FINAL IMPRESSION: 1. There is no evidence of any ST-segment depression to suggest ischemia during Lexiscan injection. 2. The results of the nuclear study will follow. MMODL / IJN: [id number] /
== END | disposition home or self-care (01) ==
LOC: RADNMMAIN 07:33
PROVIDERS: ATTEND Physician Assistant
DX: I10 Essential (primary) hypertension (principal)
CPT/HCPCS: 93017; 78452; A9500

== ENCOUNTER → 2018-12-03 | Outpatient (CLI) | payer OTHER ==
[2018-12-03 09:59] VITALS: BP 139/69; PULSE 74; RESP 16; TEMP 97.3; BMI 27.4
--- NOTE | 2018-12-03 11:09 | P.HPOB ---
History of Present Illness H&P Date: 12/03/18 Chief Complaint: The patient is here for her routine gynecologic exam. This is a 63-year-old G0 with an LMP of 2002. The patient is status post vaginal hysterectomy with BSO for benign reasons. She has a history of vulvar lichen sclerosis diagnosed in 2017. She does not believe she has ever had a biopsy for this. She has been using Kenalog cream PRN for pruritus. She states there are times when pruritus becomes worse and she does believe the clobetasol ointment did seem to help better with the pruritus. She denies any postmenopausal bleeding. She does feel that the Premarin vaginal cream is helpful for vaginal dryness. Review of Systems She is gained 3 pounds over the last year. She denies respiratory, cardiac and G.I. problems. She denies maltreatment or problems with falling. : she states she occasionally does have slight urinary leakage, but this is tolerable. She does not wake up as much at night to urinate since she has been using CPAP for sleep apnea. Past Medical History Past Medical History: Diabetes Mellitus, GERD/Reflux, Hyperlipidemia, Hypertension, Sleep Apnea/CPAP/BIPAP, Thyroid Disorder Additional Past Medical History / Comment(s): Type II diabetes, hypothyroidism, arthritis. kidney stones in the past; hx. non healing wounds R shoulder. 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 She has a history of lichen sclerosis of the vulva. History of Any Multi-Drug Resistant Organisms: MRSA Date of last positivie culture/infection: 2015 MDRO Source:: buttock Past Surgical History: Cholecystectomy, Hysterectomy, Tonsillectomy Additional Past Surgical History / Comment(s): lithotripsy; colonoscopies; cataracts, R breast lumpectomy, hemorrhoidectomy. Vaginal hysterectomy with unilateral oophorectomy 2002. Remaining ovary was removed in 2003. Bladder sling procedure. Colonoscopy 2016. Past Anesthesia/Blood Transfusion Reactions: Motion Sickness, Postoperative Nausea & Vomiting (PONV) Past Psychological History: Anxiety, Depression Smoking Status: Never smoker Past Alcohol Use History: None Reported Past Drug Use History: None Reported Additional History: She is single and is not sexually active. She is retired from the [employer]. - Past Family History Father Family Medical History: Cancer, Diabetes Mellitus Additional Family Medical History / Comment(s): Colon Mother Family Medical History: Diabetes Mellitus, Myocardial Infarction ([place]) Sister(s) Family Medical History: Coronary Artery Disease (CAD), CVA/TIA, Myocardial Infarction ([place]) Brother(s) Family Medical History: Coronary Artery Disease (CAD) Medications and Allergies Home Medications Medication Instructions Recorded Confirmed Type Ascorbic Acid [Vitamin C] 1,000 mg PO BID 01/12/16 10/02/18 History Aspirin 325 mg PO HS 01/12/16 10/02/18 History Benazepril HCl 20 mg PO DAILY 01/12/16 10/04/18 History Calcium 315 mg PO TID 01/12/16 10/02/18 History Cholecalciferol [Vitamin D3] 2,000 unit PO HS 01/12/16 10/02/18 History Cyanocobalamin [Vitamin B-12 1,000 mcg SQ QMONTH 01/12/16 10/02/18 History Injection] Docusate [Colace] 200 mg PO HS 01/12/16 10/04/18 History Dubicaine 1% Ointment 1 applic RECTAL DAILY PRN 01/12/16 10/02/18 History Ibandronate Sodium [Boniva] 150 mg PO QMONTH 01/12/16 10/02/18 History Insulin Glargine [Lantus] 25 unit SQ HS 01/12/16 10/04/18 History Ketotifen 0.025% Ophth Soln 1 drop BOTH EYES BID PRN 01/12/16 10/02/18 History [Zaditor] Levothyroxine Sodium [Synthroid] 100 mcg PO DAILY 01/12/16 10/04/18 History Mupirocin 2% Oint [Bactroban 2% 1 applic TOPICAL DAILY PRN 01/12/16 10/02/18 History Oint] Pantoprazole Sodium [Protonix] 40 mg PO DAILY 01/12/16 10/04/18 History Polyethylene Glycol 3350 [Miralax] 25.5 gm PO DAILY 01/12/16 10/02/18 History Saxagliptin HCl [Onglyza] 5 mg PO DAILY 01/12/16 10/02/18 History Solifenacin Succinate [Vesicare] 10 mg PO DAILY@1200 01/12/16 10/02/18 History Tretinoin 1 applic TOPICAL HS 01/12/16 10/02/18 History amLODIPine [Norvasc] 10 mg PO QAM 01/12/16 10/04/18 History metFORMIN HCL [Glucophage] 1,000 mg PO BID 01/12/16 10/04/18 History Betamethasone Dipropionate 1 applic TOPICAL BID 05/18/17 10/02/18 History [Betamethasone Dipropionate 0.05%] Cyclobenzaprine [Flexeril] 5 mg PO HS PRN 05/18/17 10/02/18 History Ferrous Gluconate 324 mg PO TID 05/18/17 10/02/18 History Hydrocortisone Cream 1 applic TOPICAL BID PRN 05/18/17 10/02/18 History [Hydrocortisone 2.5% Cream] [place]-3 Fatty Acids/Fish Oil [Fish 1 cap PO DAILY@1200 05/18/17 10/02/18 History Oil 1,000 mg Softgel] Polyvinyl 1 drop BOTH EYES DAILY PRN 05/18/17 10/02/18 History Eylea Aflibercept Inj- Unknown 1 injection INTRAOCULA Q56D 06/20/18 10/02/18 History Insulin Glargine [Lantus] 16 unit SQ DAILY 06/20/18 10/04/18 History Ondansetron Odt [Zofran Odt] 4 mg PO Q8HR PRN #10 tab 06/20/18 10/04/18 Rx Pregabalin [Lyrica] 100 mg PO TID 06/20/18 10/04/18 History Allergies Allergy/AdvReac Type Severity Reaction Status Date / Time Sulfa (Sulfonamide AdvReac Rash/Hives Verified 12/03/18 10:00 Antibiotics) sulfamethoxazole AdvReac Rash/Hives Verified 12/03/18 10:00 [From Bactrim] trimethoprim [From Bactrim] AdvReac Rash/Hives Verified 12/03/18 10:00 Exam Vital Signs Temp Pulse Resp BP Pulse Ox 12/03/18 09:51 97.3 F L 74 16 139/69 98 Intake and Output 12/02/18 12/03/18 12/03/18 22:59 06:59 14:59 Other: Weight 70.307 kg Height 5'3", weight 155 pounds, BMI 27.5. This is a well-developed well-nourished white female who is alert and oriented times 3 in no acute distress. HEENT: Within normal limits. NECK: Supple without mass or thyromegaly. CHEST AND LUNGS: Clear to auscultation. HEART: Regular rate and rhythm. BREASTS: Are without mass or discharge. AXILLARY EXAM: Negative for adenopathy. BACK: Negative for CVA tenderness. ABDOMEN: Soft, nontender, without palpable masses. PELVIC EXAM: External genitalia reveals moderate atrophy with generalized vulvar mild pallor which extends to the perineum and perianal area consistent with lichen sclerosis. This is well demarcated with no ulceration or focal lesions.. Vagina appears normal with moderate atrophy. There is no evidence of prolapse. Bimanual examination is negative for mass or tenderness. RECTAL EXAM: Rectovaginal exam is negative for mass or tenderness and is negative for occult blood. EXTREMITIES: Nontender. IMPRESSION: 1. 63-year-old menopausal female status post vaginal hysterectomy and BS done for benign reasons. 2. Lichen sclerosis of the vulva which is fairly controlled with triamcinolone cream. 3. History of osteopenia on Boniva through her primary care physician. PLAN: 1. Pap smears have been discontinued. 2. Self breast awareness was discussed with the patient. 3. Screening mammogram is due and she has an appointment for the end of this month. The order slip was given to the patient for this. 4. Osteoporosis prevention was discussed. I have stressed the importance of adequate calcium, vitamin D and regular exercise. Recommended amounts of calcium and vitamin D were also discussed. She will continue on medication and have bone density testing through her primary care physician, as she has done in the past. 5. Clobetasol 0.05% ointment BID PRN. She will use this infrequently as needed. As symptoms improve, she will try to use a small amount of petroleum jelly 1 day as a protective layer. This prescription will be sentenced to the [facility] in [place]. 6. She will continue to use Premarin vaginal cream 1 g intravaginally twice- weekly. The electronic prescription will be sent to the [facility] in [place]. 7. She did receive a flu shot this past fall. 8.She was advised to return in one year for her annual well woman exam.
== END | disposition home or self-care (01) ==
LOC: WWCWWP 09:33
PROVIDERS: ATTEND Obstetrics & Gynecology
DX: Z53.9 Procedure and treatment not carried out, unspecified reason (principal)

== ENCOUNTER → 2018-12-27 | Outpatient (CLI) | payer OTHER ==
--- NOTE | 2018-12-30 10:39 | MM ---
Reason for exam: screening (asymptomatic). Last mammogram was performed 1 year ago. History: Patient is postmenopausal and is nulliparous. Benign excisional biopsy of the right breast, 1990. Physical Findings: A clinical breast exam by your physician is recommended on an annual basis and results should be correlated with mammographic findings. MG Screening Mammo w CAD Bilateral CC and MLO view(s) were taken. Prior study comparison: December 26, 2017, bilateral MG screening mammo w CAD. September 07, 2016, mammogram, performed at [place]. The breast tissue is heterogeneously dense. This may lower the sensitivity of mammography. No suspicious abnormality. No significant changes when compared with prior studies. ASSESSMENT: Negative, BI-RAD 1 RECOMMENDATION: Routine screening mammogram of both breasts in 1 year.
== END | disposition home or self-care (01) ==
LOC: RADMAMWWP 08:46
PROVIDERS: ATTEND Family Medicine
DX: Z12.31 Encounter for screening mammogram for malignant neoplasm of breast (principal)
CPT/HCPCS: 77067

== ENCOUNTER 2019-03-20 19:28 | Emergency (ER) | payer MEDICARE, OTHER ==
[2019-03-20 19:40] VITALS: BP 125/80; PULSE 69; RESP 18; TEMP 97.8
[2019-03-20] MEDS ORDERED: ONDANSETRON 4 MG/2 ML VIAL IVP STA (19:49)
[2019-03-20] MEDS ORDERED: SODIUM CHLORIDE 0.9% 1,000 ML IV STA (19:49)
--- NOTE | 2019-03-20 19:50 | ED ---
Nausea/Vomiting/Diarrhea HPI - General Chief complaint: Nausea/Vomiting/Diarrhea Stated complaint: nausea Time Seen by Provider: 03/20/19 19:49 Source: patient, RN notes reviewed, old records reviewed Mode of arrival: ambulatory Limitations: no limitations - History of Present Illness Initial comments: This is a 63-year-old female the ER for evaluation presents today for evaluation of nausea and vomiting also diarrhea. History of bloating history of similar episodes she states she gets this about once a year. Denies abdominal pain no fevers or travel history no sick contacts, no significant recent fevers. Patient did take Zofran at home with no significant improvement currently MD complaint: nausea, vomiting, diarrhea -: days(s) Description of Vomiting: food contents, watery Description of Diarrhea: water Associated Abdominal Pain: Yes Location: diffuse (No pain) Severity: mild Severity scale (1-10): 3 (3-4 episodes of vomiting) Consistency: intermittent Improves with: none Worsens with: none Associated Symptoms: loss of appetite, nausea/vomiting, weakness - Related Data Home Medications Medication Instructions Recorded Confirmed Aspirin 325 mg PO DAILY 01/12/16 03/20/19 Benazepril HCl 20 mg PO DAILY 01/12/16 03/20/19 Cyanocobalamin [Vitamin B-12 1,000 mcg SQ Q30D 01/12/16 03/20/19 Injection] Docusate [Colace] 200 mg PO HS 01/12/16 03/20/19 Dubicaine 1% Ointment 1 applic RECTAL DAILY PRN 01/12/16 03/20/19 Ibandronate Sodium [Boniva] 150 mg PO Q28D 01/12/16 03/20/19 Levothyroxine Sodium [Synthroid] 100 mcg PO DAILY 01/12/16 03/20/19 Mupirocin 2% Oint [Bactroban 2% 1 applic TOPICAL DAILY PRN 01/12/16 03/20/19 Oint] Pantoprazole Sodium [Protonix] 40 mg PO HS 01/12/16 03/20/19 Polyethylene Glycol 3350 [Miralax] 25.5 gm PO DAILY 01/12/16 03/20/19 Solifenacin Succinate [Vesicare] 10 mg PO DAILY@1200 01/12/16 03/20/19 Tretinoin 1 applic TOPICAL HS 01/12/16 03/20/19 amLODIPine [Norvasc] 10 mg PO DAILY 01/12/16 03/20/19 metFORMIN HCL [Glucophage] 1,000 mg PO BID 01/12/16 03/20/19 Cyclobenzaprine [Flexeril] 5 mg PO HS PRN 05/18/17 03/20/19 Ferrous Gluconate 324 mg PO TID 05/18/17 03/20/19 Hydrocortisone Cream 1 applic TOPICAL BID PRN 05/18/17 03/20/19 [Hydrocortisone 2.5% Cream] [place]-3 Fatty Acids/Fish Oil [Fish 1 cap PO DAILY@1200 05/18/17 03/20/19 Oil 1,000 mg Softgel] Pregabalin [Lyrica] 100 mg PO TID 06/20/18 03/20/19 5Hydroxytryptophan(Oxitriptan) 200 mg PO HS 03/20/19 03/20/19 [5-Htp] Alogliptin(Unknown Dose) 1 tab PO DAILY 03/20/19 03/20/19 Artificial Tears Ointment 1 gm BOTH EYES HS 03/20/19 03/20/19 [Lubrifresh Pm Ointment] Ascorbic Acid [Vitamin C] 2,000 mg PO DAILY@1200 03/20/19 03/20/19 Calcium 315mg 315 mg PO TID 03/20/19 03/20/19 Chlorhexidine Gluconate [Hibiclens] 1 applic TOPICAL DAILY PRN 03/20/19 03/20/19 Cholecalciferol (Vitamin D3) 4,000 unit PO DAILY@1200 03/20/19 03/20/19 [Vitamin D3] Cromolyn Sodium 1 drop BOTH EYES BID 03/20/19 03/20/19 Glycerin/Propylene Glycol 1 drop BOTH EYES QID PRN 03/20/19 03/20/19 [Artificial Tears Drops] Insulin Glargine,Hum.rec.anlog 16 unit SQ DAILY 03/20/19 03/20/19 [Lantus Solostar] Insulin Glargine,Hum.rec.anlog 25 unit SQ HS 03/20/19 03/20/19 [Lantus Solostar] Ketotifen 0.025% Ophth Soln 1 drop BOTH EYES BID 03/20/19 03/20/19 [Zaditor] Loratadine [Claritin] 10 mg PO DAILY 03/20/19 03/20/19 Olopatadine HCl 1 applic BOTH EYES BID 03/20/19 03/20/19 Ondansetron [Zofran] 4 mg PO BID PRN 03/20/19 03/20/19 Ozurdex Inj-Unknown 1 injection INTRAOCULA Q84D 03/20/19 03/20/19 Simvastatin 80 mg PO HS 03/20/19 03/20/19 hydrOXYzine PAMOATE 25 mg PO TID PRN 03/20/19 03/20/19 Allergies Allergy/AdvReac Type Severity Reaction Status Date / Time Sulfa (Sulfonamide AdvReac Rash/Hives Verified 12/03/18 10:00 Antibiotics) sulfamethoxazole AdvReac Rash/Hives Verified 12/03/18 10:00 [From Bactrim] trimethoprim [From Bactrim] AdvReac Rash/Hives Verified 12/03/18 10:00 Review of Systems ROS Statement: Those systems with pertinent positive or pertinent negative responses have been documented in the HPI. ROS Other: All systems not noted in ROS Statement are negative. Past Medical History Past Medical History: Diabetes Mellitus, GERD/Reflux, Hyperlipidemia, Hypertension, Sleep Apnea/CPAP/BIPAP, Thyroid Disorder Additional Past Medical History / Comment(s): Type II diabetes, hypothyroidism, arthritis. kidney stones in the past; hx. non healing wounds R shoulder. History of Any Multi-Drug Resistant Organisms: MRSA Date of last positivie culture/infection: 2015 MDRO Source:: buttock Past Surgical History: Cholecystectomy, Hysterectomy, Tonsillectomy Additional Past Surgical History / Comment(s): lithotripsy; colonoscopies; cataracts, R breast lumpectomy, hemorrhoidectomy. Vaginal hysterectomy with unilateral oophorectomy 2002. Remaining ovary was removed in 2003. Bladder sling procedure. Colonoscopy 2016. Past Anesthesia/Blood Transfusion Reactions: Motion Sickness, Postoperative Nausea & Vomiting (PONV) Past Psychological History: Anxiety, Depression Smoking Status: Never smoker Past Alcohol Use History: None Reported Past Drug Use History: None Reported - Past Family History Father Family Medical History: Cancer, Diabetes Mellitus Additional Family Medical History / Comment(s): Colon Mother Family Medical History: Diabetes Mellitus, Myocardial Infarction ([place]) Sister(s) Family Medical History: Coronary Artery Disease (CAD), CVA/TIA, Myocardial Infarction ([place]) Brother(s) Family Medical History: Coronary Artery Disease (CAD) General Exam Limitations: no limitations General appearance: alert, in no apparent distress Head exam: Present: atraumatic, normocephalic, normal inspection Eye exam: Present: normal appearance, PERRL, EOMI. Absent: scleral icterus, conjunctival injection, periorbital swelling ENT exam: Present: normal exam, mucous membranes moist Neck exam: Present: normal inspection. Absent: tenderness, meningismus, lymphadenopathy Respiratory exam: Present: normal lung sounds bilaterally. Absent: respiratory distress, wheezes, rales, rhonchi, stridor Cardiovascular Exam: Present: regular rate, normal rhythm, normal heart sounds. Absent: systolic murmur, diastolic murmur, rubs, gallop, clicks GI/Abdominal exam: Present: soft, normal bowel sounds. Absent: distended, tenderness, guarding, rebound, rigid Extremities exam: Present: normal inspection, full ROM, normal capillary refill. Absent: tenderness, pedal edema, joint swelling, calf tenderness Back exam: Present: normal inspection Neurological exam: Present: alert, oriented X3, CN II-XII intact Psychiatric exam: Present: normal affect, normal mood Skin exam: Present: warm, dry, intact, normal color. Absent: rash Course Vital Signs 03/20/19 19:36 Temperature 97.8 F Pulse Rate 69 Respiratory 18 Rate Blood Pressure 125/80 O2 Sat by Pulse 99 Oximetry - Reevaluation(s) Reevaluation #1: Medical record reviewed Patient does have improvement in symptoms No active nausea vomiting Medical Decision Making - Medical Decision Making 63 female the ER for persistent nausea vomiting, admitted for ER for evaluation, patient has mild dehydration, symptoms are improved and patient can be discharged home - Lab Data Result diagrams: 03/20/19 20:37 03/20/19 20:37 Lab Results 03/20/19 03/20/19 03/20/19 Range/Units 20:04 20:37 20:37 WBC 9.0 (3.8-10.6) k/uL RBC 4.40 (3.80-5.40) m/uL Hgb 12.8 (11.4-16.0) gm/dL Hct 38.7 (34.0-46.0) % MCV 88.0 (80.0-100.0) fL MCH 29.0 (25.0-35.0) pg MCHC 33.0 (31.0-37.0) g/dL RDW 14.0 (11.5-15.5) % Plt Count 246 (150-450) k/uL Neutrophils % 74 % Lymphocytes % 17 % Monocytes % 5 % Eosinophils % 1 % Basophils % 0 % Neutrophils # 6.7 (1.3-7.7) k/uL Lymphocytes # 1.6 (1.0-4.8) k/uL Monocytes # 0.5 (0-1.0) k/uL Eosinophils # 0.1 (0-0.7) k/uL Basophils # 0.0 (0-0.2) k/uL PT (9.0-12.0) sec INR (<1.2) APTT (22.0-30.0) sec Sodium 140 (137-145) mmol/L Potassium 3.8 (3.5-5.1) mmol/L Chloride 106 (98-107) mmol/L Carbon Dioxide 24 (22-30) mmol/L Anion Gap 10 mmol/L BUN 12 (7-17) mg/dL Creatinine 0.59 (0.52-1.04) mg/dL Est GFR (CKD-EPI)AfAm >90 (>60 ml/min/1.73 sqM) Est GFR (CKD-EPI)NonAf >90 (>60 ml/min/1.73 sqM) Glucose 207 H (74-99) mg/dL Plasma Lactic Acid Raj (0.7-2.0) mmol/L Calcium 9.4 (8.4-10.2) mg/dL Phosphorus 3.2 (2.5-4.5) mg/dL Magnesium 1.5 L (1.6-2.3) mg/dL Total Bilirubin 0.3 (0.2-1.3) mg/dL AST 19 (14-36) U/L ALT 20 (9-52) U/L Alkaline Phosphatase 71 (38-126) U/L Creatine Kinase 35 (30-135) U/L Troponin I (0.000-0.034) ng/mL Total Protein 6.9 (6.3-8.2) g/dL Albumin 4.3 (3.5-5.0) g/dL Urine Color Light Yellow Urine Appearance Clear (Clear) Urine pH 7.0 (5.0-8.0) Ur Specific [place] 1.007 (1.001-1.035) Urine Protein Negative (Negative) Urine Glucose (UA) 1+ H (Negative) Urine Ketones Negative (Negative) Urine Blood Negative (Negative) Urine Nitrite Negative (Negative) Urine Bilirubin Negative (Negative) Urine Urobilinogen <2.0 (<2.0) mg/dL Ur Leukocyte Esterase Negative (Negative) 03/20/19 03/20/19 03/20/19 Range/Units 20:37 20:37 20:37 WBC (3.8-10.6) k/uL RBC (3.80-5.40) m/uL Hgb (11.4-16.0) gm/dL Hct (34.0-46.0) % MCV (80.0-100.0) fL MCH (25.0-35.0) pg MCHC (31.0-37.0) g/dL RDW (11.5-15.5) % Plt Count (150-450) k/uL Neutrophils % % Lymphocytes % % Monocytes % % Eosinophils % % Basophils % % Neutrophils # (1.3-7.7) k/uL Lymphocytes # (1.0-4.8) k/uL Monocytes # (0-1.0) k/uL Eosinophils # (0-0.7) k/uL Basophils # (0-0.2) k/uL PT 10.3 (9.0-12.0) sec INR 1.0 (<1.2) APTT 22.6 (22.0-30.0) sec Sodium (137-145) mmol/L Potassium (3.5-5.1) mmol/L Chloride (98-107) mmol/L Carbon Dioxide (22-30) mmol/L Anion Gap mmol/L BUN (7-17) mg/dL Creatinine (0.52-1.04) mg/dL Est GFR (CKD-EPI)AfAm (>60 ml/min/1.73 sqM) Est GFR (CKD-EPI)NonAf (>60 ml/min/1.73 sqM) Glucose (74-99) mg/dL Plasma Lactic Acid Raj 1.2 (0.7-2.0) mmol/L Calcium (8.4-10.2) mg/dL Phosphorus (2.5-4.5) mg/dL Magnesium (1.6-2.3) mg/dL Total Bilirubin (0.2-1.3) mg/dL AST (14-36) U/L ALT (9-52) U/L Alkaline Phosphatase (38-126) U/L Creatine Kinase (30-135) U/L Troponin I <0.012 (0.000-0.034) ng/mL Total Protein (6.3-8.2) g/dL Albumin (3.5-5.0) g/dL Urine Color Urine Appearance (Clear) Urine pH (5.0-8.0) Ur Specific [place] (1.001-1.035) Urine Protein (Negative) Urine Glucose (UA) (Negative) Urine Ketones (Negative) Urine Blood (Negative) Urine Nitrite (Negative) Urine Bilirubin (Negative) Urine Urobilinogen (<2.0) mg/dL Ur Leukocyte Esterase (Negative) - EKG Data -: EKG Interpreted by Me (EKG shows NSR 88 OR 162 QRS 78 QTc 430) Disposition Clinical Impression: Dehydration, Gastroenteritis Disposition: HOME SELF-CARE Instructions (If sedation given, give patient instructions): Acute Nausea and Vomiting (ED) Is patient prescribed a controlled substance at d/c from ED?: No Referrals: Fuad Dickens DO [Doctor of Osteopathic Medicine] - 1-2 days
[2019-03-20] MEDS ORDERED: ONDANSETRON 4 MG ODT STARTER PACK 2 TAB BTL PO STA (20:44)
[2019-03-20 20:53] LABS: Appearance,Urine Clear (Clear); Bilirubin,Urine Negative (Negative); Blood,Urine Negative (Negative); Color,Urine Light Yellow; Glucose,Urine (UA) 1+ (Negative); Ketones,Urine Negative (Negative); Leukocyte Esterase,Urine Negative (Negative); Nitrite,Urine Negative (Negative); Protein,Urine Negative (Negative); Specific Gravity,Urine 1.007 (1.001-1.035); Urobilinogen,Urine <2.0 mg/dL (<2.0)
[2019-03-20 20:53] LABS: Basophils % (A) 0 %; Eosinophils # (A) 0.1 k/uL (0-0.7); Eosinophils % (A) 1 %; HCT 38.7 % (34.0-46.0); HGB 12.8 gm/dL (11.4-16.0); Lymphocytes # (A) 1.6 k/uL (1.0-4.8); Lymphocytes % (A) 17 %; Mean Platelet Volume 8.1; Monocytes # (A) 0.5 k/uL (0-1.0); Monocytes % (A) 5 %; Neutrophils # (A) 6.7 k/uL (1.3-7.7); Neutrophils % (A) 74 %; Platelet Count 246 k/uL (150-450)
[2019-03-20] MEDS: SODIUM CHLORIDE 0.9% 1,000 ML IV STA ×2 (20:57→22:14)
[2019-03-20 21:02] LABS: Partial Thromboplastin Time 22.6 sec (22.0-30.0); Prothrombin Time 10.3 sec (9.0-12.0)
[2019-03-20 21:07] LABS: ALT 20 U/L (9-52); AST 19 U/L (14-36); African American GFR (CKD) >90 (>60 ml/min/1.73 sqM); Albumin 4.3 g/dL (3.5-5.0); Alkaline Phosphatase 71 U/L (38-126); Anion Gap 10 mmol/L; Blood Urea Nitrogen 12 mg/dL (7-17); Calcium 9.4 mg/dL (8.4-10.2); Carbon Dioxide 24 mmol/L (22-30); Chloride 106 mmol/L (98-107); Creatine Kinase 35 U/L (30-135); Glucose 207 mg/dL (74-99); Magnesium 1.5 mg/dL (1.6-2.3); Phosphorus 3.2 mg/dL (2.5-4.5); Potassium 3.8 mmol/L (3.5-5.1); Sodium 140 mmol/L (137-145); Total Bilirubin 0.3 mg/dL (0.2-1.3); Total Protein 6.9 g/dL (6.3-8.2)
== END 2019-03-20 23:00 | disposition home or self-care (01) ==
LOC: EC 19:28
DX: E86.0 Dehydration (principal); K52.9 Noninfective gastroenteritis and colitis, unspecified; E11.9 Type 2 diabetes mellitus without complications; K21.9 Gastro-esophageal reflux disease without esophagitis; E78.5 Hyperlipidemia, unspecified; I10 Essential (primary) hypertension; E03.9 Hypothyroidism, unspecified; G47.30 Sleep apnea, unspecified; Z99.89 Dependence on other enabling machines and devices; F32.9 Major depressive disorder, single episode, unspecified; F41.9 Anxiety disorder, unspecified; Z86.14 Personal history of Methicillin resistant Staphylococcus aureus infection; Z79.82 Long term (current) use of aspirin; Z79.890 Hormone replacement therapy; Z79.4 Long term (current) use of insulin; Z79.899 Other long term (current) drug therapy; Z88.1 Allergy status to other antibiotic agents; Z88.2 Allergy status to sulfonamides; Z90.49 Acquired absence of other specified parts of digestive tract
CPT/HCPCS: 36415; 93005; 80053; 82550; 83605; 83735; 84100; 84484; 85025; 85610; 85730; 81003; 87086; 99284; 96374; 96361 ×2; J2405; S0119

== ENCOUNTER 2019-07-16 10:01 | Emergency (ER) | payer MEDICARE, OTHER ==
--- NOTE | 2019-07-16 10:56 | XR ---
EXAMINATION TYPE: XR foot complete LT DATE OF EXAM: 07/16/2019 CLINICAL HISTORY: Left foot pain with no known injury TECHNIQUE: Frontal, lateral, and oblique images of the left foot are obtained. COMPARISON: 02/18/2015 FINDINGS: Defect is seen of the left fifth metatarsal head that could be postsurgical, posttraumatic or postinfectious/postinflammatory. Mild degenerative changes of the distal interphalangeal joints an d moderate of the first metatarsophalangeal joint with osseous proliferation, joint space narrowing, opposing surface sclerosis and subchondral cysts. Small plantar heel spur. IMPRESSION: 1. No acute fracture or dislocation of the left foot. 2. 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 Progressive now moderate ar thropathy of the forefoot in comparison to 2014.
--- NOTE | 2019-07-16 11:02 | ED ---
Lower Extremity Injury HPI - General Chief Complaint: Extremity Injury, Lower Stated Complaint: LEFT FOOT INJURY Time Seen by Provider: 07/16/19 10:31 Source: patient Mode of arrival: ambulatory Limitations: no limitations - History of Present Illness Initial Comments: Patient is a 63-year-old female presenting to the emergency Department with complaints of left foot pain 2 days. Patient denies any injuries or trauma to her left foot. 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 Patient was having some soreness in her foot over last weekend however when she went to take a step down stairs yesterday she had a sharp pain and felt cracks in her left foot. Patient has been unable to bear weight without significant pain since yesterday. Patient denies any fever, chills. Patient has no other complaints at this time. Patient denies any surgeries or prior trauma to her left foot or ankle. Upon arrival to the ER, vital signs are stable. - Related Data Home Medications Medication Instructions Recorded Confirmed Aspirin 325 mg PO DAILY 01/12/16 03/20/19 Benazepril HCl 20 mg PO DAILY 01/12/16 03/20/19 Cyanocobalamin [Vitamin B-12 1,000 mcg SQ Q30D 01/12/16 03/20/19 Injection] Docusate [Colace] 200 mg PO HS 01/12/16 03/20/19 Dubicaine 1% Ointment 1 applic RECTAL DAILY PRN 01/12/16 03/20/19 Ibandronate Sodium [Boniva] 150 mg PO Q28D 01/12/16 03/20/19 Levothyroxine Sodium [Synthroid] 100 mcg PO DAILY 01/12/16 03/20/19 Mupirocin 2% Oint [Bactroban 2% 1 applic TOPICAL DAILY PRN 01/12/16 03/20/19 Oint] Pantoprazole Sodium [Protonix] 40 mg PO HS 01/12/16 03/20/19 Polyethylene Glycol 3350 [Miralax] 25.5 gm PO DAILY 01/12/16 03/20/19 Solifenacin Succinate [Vesicare] 10 mg PO DAILY@1200 01/12/16 03/20/19 Tretinoin 1 applic TOPICAL HS 01/12/16 03/20/19 amLODIPine [Norvasc] 10 mg PO DAILY 01/12/16 03/20/19 metFORMIN HCL [Glucophage] 1,000 mg PO BID 01/12/16 03/20/19 Cyclobenzaprine [Flexeril] 5 mg PO HS PRN 05/18/17 03/20/19 Ferrous Gluconate 324 mg PO TID 05/18/17 03/20/19 Hydrocortisone Cream 1 applic TOPICAL BID PRN 05/18/17 03/20/19 [Hydrocortisone 2.5% Cream] [place]-3 Fatty Acids/Fish Oil [Fish 1 cap PO DAILY@1200 05/18/17 03/20/19 Oil 1,000 mg Softgel] Pregabalin [Lyrica] 100 mg PO TID 06/20/18 03/20/19 5Hydroxytryptophan(Oxitriptan) 200 mg PO HS 03/20/19 03/20/19 [5-Htp] Alogliptin(Unknown Dose) 1 tab PO DAILY 03/20/19 03/20/19 Artificial Tears Ointment 1 gm BOTH EYES HS 03/20/19 03/20/19 [Lubrifresh Pm Ointment] Ascorbic Acid [Vitamin C] 2,000 mg PO DAILY@1200 03/20/19 03/20/19 Calcium 315mg 315 mg PO TID 03/20/19 03/20/19 Chlorhexidine Gluconate [Hibiclens] 1 applic TOPICAL DAILY PRN 03/20/19 03/20/19 Cholecalciferol (Vitamin D3) 4,000 unit PO DAILY@1200 03/20/19 03/20/19 [Vitamin D3] Cromolyn Sodium 1 drop BOTH EYES BID 03/20/19 03/20/19 Glycerin/Propylene Glycol 1 drop BOTH EYES QID PRN 03/20/19 03/20/19 [Artificial Tears Drops] Insulin Glargine,Hum.rec.anlog 16 unit SQ DAILY 03/20/19 03/20/19 [Lantus Solostar] Insulin Glargine,Hum.rec.anlog 25 unit SQ HS 03/20/19 03/20/19 [Lantus Solostar] Ketotifen 0.025% Ophth Soln 1 drop BOTH EYES BID 03/20/19 03/20/19 [Zaditor] Loratadine [Claritin] 10 mg PO DAILY 03/20/19 03/20/19 Olopatadine HCl 1 applic BOTH EYES BID 03/20/19 03/20/19 Ondansetron [Zofran] 4 mg PO BID PRN 03/20/19 03/20/19 Ozurdex Inj-Unknown 1 injection INTRAOCULA Q84D 03/20/19 03/20/19 Simvastatin 80 mg PO HS 03/20/19 03/20/19 hydrOXYzine PAMOATE 25 mg PO TID PRN 03/20/19 03/20/19 Allergies Allergy/AdvReac Type Severity Reaction Status Date / Time Sulfa (Sulfonamide AdvReac Rash/Hives Verified 07/16/19 10:15 Antibiotics) sulfamethoxazole AdvReac Rash/Hives Verified 07/16/19 10:15 [From Bactrim] trimethoprim [From Bactrim] AdvReac Rash/Hives Verified 07/16/19 10:15 Review of Systems ROS Statement: Those systems with pertinent positive or pertinent negative responses have been documented in the HPI. ROS Other: All systems not noted in ROS Statement are negative. Past Medical History Past Medical History: Diabetes Mellitus, GERD/Reflux, Hyperlipidemia, Hypertension, Sleep Apnea/CPAP/BIPAP, Thyroid Disorder Additional Past Medical History / Comment(s): Type II diabetes, hypothyroidism, arthritis. kidney stones in the past; hx. non healing wounds R shoulder. History of Any Multi-Drug Resistant Organisms: MRSA Date of last positivie culture/infection: 2015 MDRO Source:: buttock Past Surgical History: Cholecystectomy, Hysterectomy, Tonsillectomy Additional Past Surgical History / Comment(s): lithotripsy; colonoscopies; cataracts, R breast lumpectomy, hemorrhoidectomy. Vaginal hysterectomy with unilateral oophorectomy 2002. Remaining ovary was removed in 2003. Bladder sling procedure. Colonoscopy 2016. Past Anesthesia/Blood Transfusion Reactions: Motion Sickness, Postoperative Nausea & Vomiting (PONV) Past Psychological History: Anxiety, Depression Smoking Status: Never smoker Past Alcohol Use History: None Reported Past Drug Use History: None Reported - Past Family History Father Family Medical History: Cancer, Diabetes Mellitus Additional Family Medical History / Comment(s): Colon Mother Family Medical History: Diabetes Mellitus, Myocardial Infarction ([place]) Sister(s) Family Medical History: Coronary Artery Disease (CAD), CVA/TIA, Myocardial Infarction ([place]) Brother(s) Family Medical History: Coronary Artery Disease (CAD) General Exam - General Exam Comments Initial Comments: GENERAL: Well-appearing, well-nourished and in no acute distress. HEAD: Atraumatic, normocephalic. EYES: Pupils equal round and reactive to light, extraocular movements intact, sclera anicteric, conjunctiva are normal. ENT: Moist mucous membranes. NECK: Normal range of motion, supple without lymphadenopathy or JVD. LUNGS: Breath sounds clear to auscultation bilaterally and equal. No wheezes rales or rhonchi. HEART: Regular rate and rhythm without murmurs, rubs or gallops. EXTREMITIES: Mild tenderness to palpation of the left forefoot. Patient has full range of motion of the left foot and ankle. There is no swelling or edema present. Neurovascular intact. NEUROLOGICAL: Cranial nerves II through XII grossly intact. Normal speech PSYCH: Normal mood, normal affect. SKIN: Warm, Dry, normal turgor, no rashes or lesions noted. Limitations: no limitations Course Vital Signs 07/16/19 07/16/19 10:14 11:38 Temperature 97.9 F 98.1 F Pulse Rate 69 75 Respiratory 16 20 Rate Blood Pressure 113/64 134/64 O2 Sat by Pulse 99 96 Oximetry Medical Decision Making - Medical Decision Making Patient is a 63-year-old female presenting with left foot pain for 1 week. There is no injuries or trauma to the left foot. X-rays reveal no acute abnormalities, only degenerative changes. It is discussed with patient to make sure she wears a supportive shoe and to follow up with her PCP as symptoms persist. Patient is stable for discharge at this time. Patient is in agreement with this plan of care. Return parameters were discussed with the patient she verbalized understanding. Case discussed with Dr. Flood. Disposition Clinical Impression: Left foot pain Disposition: HOME SELF-CARE Condition: Stable Instructions (If sedation given, give patient instructions): Foot Sprain (ED) Additional Instructions: Please return to the Emergency Department if symptoms worsen or any other concerns. Use heat and/or ice for pain relief as well as supportive shoes. Follow-up with PCP if symptoms persist. Is patient prescribed a controlled substance at d/c from ED?: No Referrals: [facility],Clinic [Primary Care Provider] - 1-2 days
[2019-07-16 11:40] VITALS: BP 134/64; PULSE 75; RESP 20; TEMP 98.1
== END 2019-07-16 11:42 | disposition home or self-care (01) ==
LOC: EC 10:01
DX: M19.072 Primary osteoarthritis, left ankle and foot (principal); E11.40 Type 2 diabetes mellitus with diabetic neuropathy, unspecified; K21.9 Gastro-esophageal reflux disease without esophagitis; E78.5 Hyperlipidemia, unspecified; I10 Essential (primary) hypertension; E03.9 Hypothyroidism, unspecified; G47.30 Sleep apnea, unspecified; Z99.89 Dependence on other enabling machines and devices; Z86.14 Personal history of Methicillin resistant Staphylococcus aureus infection; Z79.82 Long term (current) use of aspirin; Z79.890 Hormone replacement therapy; Z79.4 Long term (current) use of insulin; Z79.899 Other long term (current) drug therapy; Z88.2 Allergy status to sulfonamides
CPT/HCPCS: 99283

== ENCOUNTER → 2019-09-11 | Outpatient (CLI) | payer OTHER ==
--- NOTE | 2019-09-12 03:24 | MR ---
EXAMINATION TYPE: MR foot LT wo con DATE OF EXAM: 09/11/2019 COMPARISON: None HISTORY: Pain is on top/mid foot, towards lateral aspect; hx of bunion surgery On the T2 images there is abnormal increased signal in the distal shaft of the second metatarsal. The re is some cortical thickening in the proximal shaft of the second metatarsal. There is some narrowin g of the first MP joint space with spur formation. There is subcutaneous edema over the forefoot. The ankle mortise is anatomic. Subtalar joint is intact. Medial and lateral flexor tendons of the foot a ppear intact. IMPRESSION: There is some cortical thickening in the proximal shaft second metatarsal. There is edema distal shaf t and proximal shaft of the second metatarsal. This is consistent with metatarsal healing fracture.. Stress fracture is possible. Comparison with a plain recent x-ray would be helpful. Subcutaneous edema of the forefoot..
== END | disposition home or self-care (01) ==
LOC: RADMRIMAIN 14:20
PROVIDERS: ATTEND Physician Assistant
DX: M79.672 Pain in left foot (principal); R60.9 Edema, unspecified; R93.6 Abnormal findings on diagnostic imaging of limbs

== ENCOUNTER → 2020-02-09 | Outpatient (CLI) | payer OTHER ==
--- NOTE | 2020-02-09 12:35 | MR ---
EXAMINATION TYPE: MR foot LT wo con DATE OF EXAM: 02/09/2020 COMPARISON: MRI dated 09/11/2019 and left foot x-rays dated 07/16/2019. HISTORY: Lt foot pain, hx fx Jul 2019, F/U to assess healing TECHNIQUE: Multiplanar, multisequence images of the left foot were acquired without intravenous contrast. FINDINGS: The previously seen T2 hyperintensity along the distal diaphysis of the second metatarsal of the left foot is no longer appreciated. The cortical thickening of the proximal shaft of the second metatarsa l does remain however. There is some T2 hyperintensity remaining of the base of the second metatarsal that has improved from the prior. Again there is narrowing and sclerosis with osseous cyst formation of the first metatarsophalangeal j oint. A very small tibiotalar joint effusion remains. Overall degree of subcutaneous emphysema has mi ldly improved. Increased T2 signal is seen in the pre-Achilles fat pad. A very small plantar heel spu r is noted. Sinus tarsus is unremarkable. Evaluation of the ligaments and tendons is somewhat limited given [id number] however no discrete discontinuity of the extensor or flexor tendons of the visua lized portion is seen. There is slight hyperintensity of the Lisfranc ligament without discontinuity. IMPRESSION: 1. Within the second metatarsal of the left foot there is resolved bone marrow edema of the distal di aphysis and improved bone marrow edema of the proximal base with stable proximal diaphyseal cortical thickening. Findings are suggestive of a resolving stress fracture. 2. Mild hyperintensity of the Lisfranc ligament without discontinuity relating to mild sprain. 3. Improved degree of subcutaneous edema. 4. Small tibiotalar joint effusion. 5. Nonspecific hyperintensity in the pre-Achilles fat pad, which is nonspecific but can be seen in th e retrocalcaneal bursitis.
== END | disposition home or self-care (01) ==
LOC: RADMRIMAIN 10:58
PROVIDERS: ATTEND Physician Assistant
DX: R60.0 Localized edema (principal); M25.475 Effusion, left foot; M89.8X6 Other specified disorders of bone, lower leg

== ENCOUNTER → 2020-03-02 | Outpatient (CLI) | payer OTHER ==
[2020-03-02 10:08] VITALS: BP 144/82; PULSE 79; RESP 18; TEMP 97.7
--- NOTE | 2020-03-02 11:00 | P.HPOB ---
History of Present Illness H&P Date: 03/02/20 Chief Complaint: The patient is here for her routine gynecologic exam and ma mmogram. This is a 64-year-old G0 with an LMP of 2002. The patient states she noticed ache quick sharp pain in the left breast which lasted a brief moment. This occurred a few days ago. She had noticed this on rare occasion before. She denies any palpable masses. She continues to use Premarin cream as needed for vaginal dryness. She has also used Temovate ointment infrequently for lichen sclerosis. Her vulvar itching has been infrequent. She is status post vaginal hysterectomy and BSO for benign reasons. Review of Systems She is getting about 6 pounds over the past year. She denies respiratory, cardiac and G.I. problems. She denies maltreatment or problems with falling. : she denies any significant problems with urinary leakage. Past Medical History Past Medical History: Diabetes Mellitus, GERD/Reflux, Hyperlipidemia, Hypertension, Sleep Apnea/CPAP/BIPAP, Thyroid Disorder Additional Past Medical History / Comment(s): Type II diabetes, hypothyroidism, arthritis. kidney stones in the past; hx. non healing wounds R shoulder. 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 She has a history of lichen sclerosus of the vulva. History of Any Multi-Drug Resistant Organisms: MRSA Date of last positivie culture/infection: 2015 MDRO Source:: buttock Past Surgical History: Cholecystectomy, Hysterectomy, Tonsillectomy Additional Past Surgical History / Comment(s): lithotripsy; colonoscopies; cataracts, R breast lumpectomy, hemorrhoidectomy. Vaginal hysterectomy with unilateral oophorectomy 2002. Remaining ovary was removed in 2003. Bladder sling procedure. Colonoscopy 2017(next after 5yr). Past Anesthesia/Blood Transfusion Reactions: Motion Sickness, Postoperative Nausea & Vomiting (PONV) Past Psychological History: Anxiety, Depression Smoking Status: Never smoker Past Alcohol Use History: None Reported Past Drug Use History: None Reported Additional History: She is single and is not sexually active. She is retired from the [employer]. - Past Family History Father Family Medical History: Cancer, Diabetes Mellitus Additional Family Medical History / Comment(s): Colon cancer. Mother Family Medical History: Diabetes Mellitus, Myocardial Infarction ([place]) Sister(s) Family Medical History: Coronary Artery Disease (CAD), CVA/TIA, Myocardial Infarction ([place]) Brother(s) Family Medical History: Coronary Artery Disease (CAD) Medications and Allergies Home Medications Medication Instructions Recorded Confirmed Type Aspirin 325 mg PO DAILY 01/12/16 03/20/19 History Benazepril HCl 20 mg PO DAILY 01/12/16 03/20/19 History Cyanocobalamin [Vitamin B-12 1,000 mcg SQ Q30D 01/12/16 03/20/19 History Injection] Docusate [Colace] 200 mg PO HS 01/12/16 03/20/19 History Dubicaine 1% Ointment 1 applic RECTAL DAILY PRN 01/12/16 03/20/19 History Ibandronate Sodium [Boniva] 150 mg PO Q28D 01/12/16 03/20/19 History Levothyroxine Sodium [Synthroid] 100 mcg PO DAILY 01/12/16 03/20/19 History Mupirocin 2% Oint [Bactroban 2% 1 applic TOPICAL DAILY PRN 01/12/16 03/20/19 History Oint] Pantoprazole Sodium [Protonix] 40 mg PO HS 01/12/16 03/20/19 History Polyethylene Glycol 3350 [Miralax] 25.5 gm PO DAILY 01/12/16 03/20/19 History Solifenacin Succinate [Vesicare] 10 mg PO DAILY@1200 01/12/16 03/20/19 History Tretinoin 1 applic TOPICAL HS 01/12/16 03/20/19 History amLODIPine [Norvasc] 10 mg PO DAILY 01/12/16 03/20/19 History metFORMIN HCL [Glucophage] 1,000 mg PO BID 01/12/16 03/20/19 History Cyclobenzaprine [Flexeril] 5 mg PO HS PRN 05/18/17 03/20/19 History Ferrous Gluconate 324 mg PO TID 05/18/17 03/20/19 History Hydrocortisone Cream 1 applic TOPICAL BID PRN 05/18/17 03/20/19 History [Hydrocortisone 2.5% Cream] [place]-3 Fatty Acids/Fish Oil [Fish 1 cap PO DAILY@1200 05/18/17 03/20/19 History Oil 1,000 mg Softgel] Pregabalin [Lyrica] 100 mg PO TID 06/20/18 03/20/19 History 5Hydroxytryptophan(Oxitriptan) 200 mg PO HS 03/20/19 03/20/19 History [5-Htp] Alogliptin(Unknown Dose) 1 tab PO DAILY 03/20/19 03/20/19 History Artificial Tears Ointment 1 gm BOTH EYES HS 03/20/19 03/20/19 History [Lubrifresh Pm Ointment] Ascorbic Acid [Vitamin C] 2,000 mg PO DAILY@1200 03/20/19 03/20/19 History Calcium 315mg 315 mg PO TID 03/20/19 03/20/19 History Chlorhexidine Gluconate [Hibiclens] 1 applic TOPICAL DAILY PRN 03/20/19 03/20/19 History Cholecalciferol (Vitamin D3) 4,000 unit PO DAILY@1200 03/20/19 03/20/19 History [Vitamin D3] Cromolyn Sodium 1 drop BOTH EYES BID 03/20/19 03/20/19 History Glycerin/Propylene Glycol 1 drop BOTH EYES QID PRN 03/20/19 03/20/19 History [Artificial Tears Drops] Insulin Glargine,Hum.rec.anlog 16 unit SQ DAILY 03/20/19 03/20/19 History [Lantus Solostar] Insulin Glargine,Hum.rec.anlog 25 unit SQ HS 03/20/19 03/20/19 History [Lantus Solostar] Ketotifen 0.025% Ophth Soln 1 drop BOTH EYES BID 03/20/19 03/20/19 History [Zaditor] Loratadine [Claritin] 10 mg PO DAILY 03/20/19 03/20/19 History Olopatadine HCl 1 applic BOTH EYES BID 03/20/19 03/20/19 History Ondansetron [Zofran] 4 mg PO BID PRN 03/20/19 03/20/19 History Ozurdex Inj-Unknown 1 injection INTRAOCULA Q84D 03/20/19 03/20/19 History Simvastatin 80 mg PO HS 03/20/19 03/20/19 History hydrOXYzine PAMOATE 25 mg PO TID PRN 03/20/19 03/20/19 History Allergies Allergy/AdvReac Type Severity Reaction Status Date / Time Sulfa (Sulfonamide AdvReac Rash/Hives Verified 03/02/20 09:53 Antibiotics) sulfamethoxazole AdvReac Rash/Hives Verified 03/02/20 09:53 [From Bactrim] trimethoprim [From Bactrim] AdvReac Rash/Hives Verified 03/02/20 09:53 Exam Vital Signs Temp Pulse Resp BP Pulse Ox 03/02/20 09:55 97.7 F 79 18 144/82 97 Intake and Output 03/01/20 03/02/20 03/02/20 22:59 06:59 14:59 Other: Weight 73.028 kg Height 5 feet 3 inches, weight 161 pounds, BMI 28.5. This is a well-developed well-nourished white female who is alert and oriented times 3 in no acute distress. HEENT: Within normal limits. NECK: Supple without mass or thyromegaly. CHEST AND LUNGS: Clear to auscultation. HEART: Regular rate and rhythm. BREASTS: Are without mass or discharge. Breasts are nontender. AXILLARY EXAM: Negative for adenopathy. BACK: Negative for CVA tenderness. ABDOMEN: Soft, nontender, without palpable masses. PELVIC EXAM: External genitalia has mild pallor consistent with lichen sclerosus. There are no focal lesions. There is mild to moderate atrophy. Vagina appears normal with mild to moderate atrophy. There is no evidence of prolapse. Bimanual examination is negative for mass or tenderness. RECTAL EXAM: Rectovaginal exam is negative for mass or tenderness and is negative for occult blood. EXTREMITIES: Nontender. IMPRESSION: 1. 64-year-old menopausal female status post vaginal hysterectomy and BSO for benign reasons, with history of lichen sclerosus of the vulva which is infrequently symptomatic. This is stable in appearance. 2. Vaginal dryness improved with Premarin vaginal cream. 3. History of osteopenia. PLAN: 1. Pap smears have been discontinued. 2. Self breast awareness was discussed with the patient. 3. Screening mammogram will be done today. 4. Temovate 0.05% ointment twice a day when necessary. 5. Premarin vaginal cream 1 g intravaginally 2 times weekly. The electronic prescriptions will be sent to the [place] [facility] in [place]. 6.Osteoporosis prevention was discussed. I have stressed the importance of adequate calcium, vitamin D and regular exercise. Recommended amounts of calcium and vitamin D were also discussed. She is scheduled for a bone density test in April of this year. The order slip was given to the patient for this. 7. She was advised to return in one year for her annual well woman exam.
--- NOTE | 2020-03-03 10:07 | MM ---
Reason for exam: screening (asymptomatic). Last mammogram was performed 1 year and 2 months ago. History: Patient is postmenopausal and is nulliparous. Benign excisional biopsy of the right breast, 1990. Took hormonal contraceptives for 10 years. Physical Findings: A clinical breast exam by your physician is recommended on an annual basis and results should be correlated with mammographic findings. MG Screening Mammo w CAD Bilateral CC and MLO view(s) were taken. Prior study comparison: December 27, 2018, bilateral MG screening mammo w CAD. December 26, 2017, bilateral MG screening mammo w CAD. The breast tissue is heterogeneously dense. This may lower the sensitivity of mammography. There is no discrete abnormality. No significant changes when compared with prior studies. ASSESSMENT: Negative, BI-RAD 1 RECOMMENDATION: Routine screening mammogram of both breasts in 1 year.
== END | disposition home or self-care (01) ==
LOC: WWCWWP 09:39
PROVIDERS: ATTEND Obstetrics & Gynecology
DX: Z12.31 Encounter for screening mammogram for malignant neoplasm of breast (principal)
CPT/HCPCS: 77067

== ENCOUNTER → 2020-04-20 | Outpatient (CLI) | payer OTHER ==
--- NOTE | 2020-04-20 22:23 | BD ---
EXAMINATION TYPE: Axial Bone Density DATE OF EXAM: 04/20/2020 COMPARISON: NONE CLINICAL HISTORY: Postmenopausal female. Height: 62.2 IN Weight: 156 LBS FRAX RISK QUESTIONS: History of Fracture in Adulthood: RT RIB FX 2009; LT FOOT FX 2018 RISK FACTORS HISTORY OF: Active: YES Postmenopausal woman: TOTAL HYST AGE 47 Take estrogen and/or progesterone medications: NOT NOW How lon YEARS MEDICATIONS: Thyroid Medications: YES Which medication: Synthroid How Lon+ YEARS Osteoporosis Medications: YES Which medication: BONIVA How Lon YEARS Additional Medications: SYNTHROID, BONIVA, CALCIUM, BLOOD PRESSURE MEDS, DIABETES MEDS, ASPIRIN, EYE DROPS, B12, STOOL SOFTENER, IRON, FISH OIL, GERD MEDS, LYRICA, VESICARE, EXAM MEASUREMENTS: Bone mineral densitometry was performed using the [employer] System. Bone mineral density as measured about the Lumbar spine is: ----- L1-L4(G/cm2): 1.156 T Score Values are as follows: ----- L2: -0.3 ----- L3: 0.2 ----- L4: 0.3 ----- L1-L4: -0.2 Bone mineral density BASELINE Bone mineral density about the R hip (g/cm2): 0.812 Bone mineral density about the L hip (g/cm2): 0.879 T Score values are as follows: -----R Neck: -1.6 -----L Neck: -1.1 -----R Total: -1.1 -----L Total: -0.3 Bone mineral density BASELINE IMPRESSION: Osteopenia (T Score between -2.5 and -1). There is slightly increased risk of fracture and the patient may be considered for treatment. Re-Screen 2-5 years. NOTE: T-SCORE=SD OF THE YOUNG ADULT MEAN.
== END | disposition home or self-care (01) ==
LOC: RADBDWWP 12:29
DX: M85.80 Other specified disorders of bone density and structure, unspecified site (principal); Z78.0 Asymptomatic menopausal state; Z88.2 Allergy status to sulfonamides; Z88.8 Allergy status to other drugs, medicaments and biological substances
CPT/HCPCS: 77080

== ENCOUNTER → 2021-03-09 | Outpatient (CLI) | payer OTHER ==
--- NOTE | 2021-03-11 11:54 | MM ---
Reason for exam: screening (asymptomatic). Last mammogram was performed 1 year ago. History: Patient is postmenopausal and is nulliparous. Benign excisional biopsy of the right breast, 1990. Took hormonal contraceptives for 10 years. Physical Findings: A clinical breast exam by your physician is recommended on an annual basis and results should be correlated with mammographic findings. MG Screening Mammo w CAD Bilateral CC and MLO view(s) were taken. Prior study comparison: March 02, 2020, bilateral MG screening mammo w CAD. December 27, 2018, bilateral MG screening mammo w CAD. There are scattered fibroglandular densities. No significant changes when compared with prior studies. ASSESSMENT: Negative, BI-RAD 1 RECOMMENDATION: Routine screening mammogram of both breasts in 1 year.
== END | disposition home or self-care (01) ==
LOC: RADMAMWWP 09:22
DX: Z12.31 Encounter for screening mammogram for malignant neoplasm of breast (principal); Z78.0 Asymptomatic menopausal state; Z79.3 Long term (current) use of hormonal contraceptives
CPT/HCPCS: 77067

== ENCOUNTER → 2021-03-30 | Outpatient (CLI) | payer OTHER ==
[2021-03-30 11:09] VITALS: BP 120/63; PULSE 95; RESP 18; TEMP 98.5
--- NOTE | 2021-03-30 13:12 | P.HPOB ---
History of Present Illness H&P Date: 03/30/21 Chief Complaint: The patient is here for her routine gynecologic exam. This is a 65-year-old G0 with an LMP of 2002. The patient has a history of lichen sclerosus of the vulva which has been controlled with Temovate ointment which she has used as needed. She states she has not needed to use the ointment very frequently over the past year. She does feel that the Premarin vaginal cream which she uses does help with vaginal dryness and also helps with the vulvar symptoms associated with the lichen sclerosus. She is status post vaginal hysterectomy with BSO done for benign reasons. Review of Systems She has lost about 5 pounds over the past year. She denies respiratory or G.I. problems. Cardiac: Occasional heart palpitations. [facility] [place] She had a 24-hour heart monitor done and the results are pending. She denies maltreatment or problems with falling. : she denies any significant problems with urinary leakage. Past Medical History Past Medical History: Diabetes Mellitus, GERD/Reflux, Hyperlipidemia, Hypertension, Sleep Apnea/CPAP/BIPAP, Thyroid Disorder Additional Past Medical History / Comment(s): Type II diabetes, hypothyroidism, arthritis. kidney stones in the past; hx. non healing wounds R shoulder. Osteopenia and has used Boniva for greater than 10 years. PAST FULL TIME PARAMEDIC HISTORY: She has no history of STDs. She has a history of lichen sclerosus of the vulva. History of Any Multi-Drug Resistant Organisms: MRSA Date of last positivie culture/infection: 2015 MDRO Source:: buttock Past Surgical History: Cholecystectomy, Hysterectomy, Tonsillectomy Additional Past Surgical History / Comment(s): lithotripsy; colonoscopies; cataracts, R breast lumpectomy, hemorrhoidectomy. Vaginal hysterectomy with unilateral oophorectomy 2002. Remaining ovary was removed in 2003. Bladder sling procedure. Colonoscopy 2017(next after 5yr). Past Anesthesia/Blood Transfusion Reactions: Motion Sickness, Postoperative Nausea & Vomiting (PONV) Past Psychological History: Anxiety, Depression Smoking Status: Never smoker Past Alcohol Use History: None Reported Past Drug Use History: None Reported Additional History: She is single and is not sexually active. She is retired from the [employer]. - Past Family History Father Family Medical History: Cancer, Diabetes Mellitus Additional Family Medical History / Comment(s): Colon cancer. Mother Family Medical History: Diabetes Mellitus, Myocardial Infarction ([place]) Sister(s) Family Medical History: Coronary Artery Disease (CAD), CVA/TIA, Myocardial Infarction ([place]) Brother(s) Family Medical History: Coronary Artery Disease (CAD) Medications and Allergies Home Medications Medication Instructions Recorded Confirmed Type Aspirin 325 mg PO DAILY 01/12/16 03/30/21 History Benazepril HCl 20 mg PO DAILY 01/12/16 03/30/21 History Cyanocobalamin [Vitamin B-12 1,000 mcg SQ Q30D 01/12/16 03/30/21 History Injection] Docusate [Colace] 200 mg PO HS 01/12/16 03/30/21 History Dubicaine 1% Ointment 1 applic RECTAL DAILY PRN 01/12/16 03/30/21 History Ibandronate Sodium [Boniva] 150 mg PO Q28D 01/12/16 03/30/21 History Levothyroxine Sodium [Synthroid] 100 mcg PO DAILY 01/12/16 03/30/21 History Mupirocin 2% Oint [Bactroban 2% 1 applic TOPICAL DAILY PRN 01/12/16 03/30/21 History Oint] Pantoprazole Sodium [Protonix] 40 mg PO HS 01/12/16 03/30/21 History Polyethylene Glycol 3350 [Miralax] 25.5 gm PO DAILY 01/12/16 03/30/21 History Solifenacin Succinate [Vesicare] 10 mg PO DAILY@1200 01/12/16 03/30/21 History Tretinoin 1 applic TOPICAL HS 01/12/16 03/30/21 History amLODIPine [Norvasc] 10 mg PO DAILY 01/12/16 03/30/21 History metFORMIN HCL [Glucophage] 1,000 mg PO BID 01/12/16 03/30/21 History Cyclobenzaprine [Flexeril] 5 mg PO HS PRN 05/18/17 03/30/21 History Ferrous Gluconate 324 mg PO TID 05/18/17 03/30/21 History Hydrocortisone Cream 1 applic TOPICAL BID PRN 05/18/17 03/30/21 History [Hydrocortisone 2.5% Cream] [place]-3 Fatty Acids/Fish Oil [Fish 1 cap PO DAILY@1200 05/18/17 03/30/21 History Oil 1,000 mg Softgel] Pregabalin [Lyrica] 100 mg PO TID 06/20/18 03/30/21 History Alogliptin(Unknown Dose) 1 tab PO DAILY 03/20/19 03/30/21 History Artificial Tears Ointment 1 gm BOTH EYES HS 03/20/19 03/30/21 History [Lubrifresh Pm Ointment] Ascorbic Acid [Vitamin C] 2,000 mg PO DAILY@1200 03/20/19 03/30/21 History Calcium 315mg 315 mg PO TID 03/20/19 03/30/21 History Chlorhexidine Gluconate [Hibiclens] 1 applic TOPICAL DAILY PRN 03/20/19 03/30/21 History Cholecalciferol (Vitamin D3) 4,000 unit PO DAILY@1200 03/20/19 03/30/21 History [Vitamin D3] Cromolyn Sodium 1 drop BOTH EYES BID 03/20/19 03/30/21 History Glycerin/Propylene Glycol 1 drop BOTH EYES QID PRN 03/20/19 03/30/21 History [Artificial Tears Drops] Insulin Glargine,Hum.rec.anlog 16 unit SQ DAILY 03/20/19 03/30/21 History [Lantus Solostar] Insulin Glargine,Hum.rec.anlog 25 unit SQ HS 03/20/19 03/30/21 History [Lantus Solostar] Olopatadine HCl 1 applic BOTH EYES BID 03/20/19 03/30/21 History Ondansetron [Zofran] 4 mg PO BID PRN 03/20/19 03/30/21 History Ozurdex Inj-Unknown 1 injection INTRAOCULA Q84D 03/20/19 03/30/21 History Simvastatin 80 mg PO HS 03/20/19 03/30/21 History hydrOXYzine pamoate [hydrOXYzine 25 mg PO TID PRN 03/20/19 03/30/21 History PAMOATE] Brimonidine Tartrate/Timolol 1 drop BOTH EYES BID 03/02/20 03/30/21 History [Combigan 0.2%-0.5% Eye Drops] Clobetasol Propionate [Temovate 1 applic TOPICAL BID PRN #30 gm 03/02/20 03/30/21 Rx 0.05% Oint] Estrogens, Conjugated Cream 1 applicator VAGINAL DIRECTED 03/02/20 03/30/21 Rx [Premarin Cream] #1 tube Allergies Allergy/AdvReac Type Severity Reaction Status Date / Time Sulfa (Sulfonamide AdvReac Rash/Hives Verified 03/30/21 10:59 Antibiotics) sulfamethoxazole AdvReac Rash/Hives Verified 03/30/21 10:59 [From Bactrim] trimethoprim [From Bactrim] AdvReac Rash/Hives Verified 03/30/21 10:59 Exam Vital Signs Temp Pulse Resp BP Pulse Ox 03/30/21 10:59 98.5 F 95 18 120/63 98 Intake and Output 03/29/21 03/30/21 03/30/21 22:59 06:59 14:59 Other: Weight 70.76 kg Height 5 feet 2-1/2 inches, weight 156 pounds, BMI 28.1. This is a well-developed well-nourished white female who is alert and oriented times 3 in no acute distress. HEENT: Within normal limits. NECK: Supple without mass or thyromegaly. CHEST AND LUNGS: Clear to auscultation. HEART: Regular rate and rhythm. BREASTS: Are without mass or discharge. AXILLARY EXAM: Negative for adenopathy. BACK: Negative for CVA tenderness. ABDOMEN: Soft, nontender, without palpable masses. PELVIC EXAM: External genitalia reveals moderate atrophy with minimal erythema and minimal pallor. There are no focal lesions. Vagina appears normal with mild to moderate atrophy. There is no evidence of prolapse. Bimanual examination is negative for mass or tenderness. RECTAL EXAM: Rectovaginal exam reveals a 1 cm internal hemorrhoid which is smooth and nontender. There are no other rectal masses. Rectal exam is nontender. Stool is Hemoccult positive. EXTREMITIES: Nontender. IMPRESSION: 1. 65-year-old menopausal female who is status post vaginal hysterectomy and BSO for benign reasons, with lichen sclerosus of the vulva controlled with Temovate ointment as needed and Premarin vaginal cream. 2. History of osteopenia who is on Boniva through her PCP. 3. Hemoccult positive stool on exam today. This may or may not be related to the palpable internal hemorrhoid. PLAN: 1. Pap smears have been discontinued. 2. Self breast awareness was discussed with the patient. 3. Screening mammogram was done on 03/11/2021 and was benign. She will repeat this in 1 year. 4. I have recommended that she do her colonoscopy sooner than she was planning. She was planning to do this in approximately 7 months, which would have been 5 years after her previous one. She states she will arrange this through the [facility] in [place]. 5. Continue Temovate ointment 0.05% twice a day as needed and Premarin vaginal cream 1 g into the vagina twice weekly. [facility] [place]. 6. She has completed her Covid vaccination series. 7.Osteoporosis prevention was discussed. I have stressed the importance of adequate calcium, vitamin D and regular exercise. Recommended amounts of calcium and vitamin D were also discussed. She will continue to have bone density testing and treatment through her PCP. 8. She was advised to return in one year for her annual well woman exam.
== END ==
LOC: WWCWWP 10:28
PROVIDERS: ATTEND Obstetrics & Gynecology
DX: Z01.419 Encounter for gynecological examination (general) (routine) without abnormal findings (principal); E03.9 Hypothyroidism, unspecified; E78.5 Hyperlipidemia, unspecified; I10 Essential (primary) hypertension; R19.5 Other fecal abnormalities; E11.9 Type 2 diabetes mellitus without complications; Z87.39 Personal history of other diseases of the musculoskeletal system and connective tissue; F41.9 Anxiety disorder, unspecified; F32.9 Major depressive disorder, single episode, unspecified; K21.9 Gastro-esophageal reflux disease without esophagitis; Z79.82 Long term (current) use of aspirin; Z88.1 Allergy status to other antibiotic agents; Z88.2 Allergy status to sulfonamides; Z90.710 Acquired absence of both cervix and uterus; Z90.721 Acquired absence of ovaries, unilateral; Z79.899 Other long term (current) drug therapy

== ENCOUNTER 2021-04-17 10:27 | Emergency (ER) | payer OTHER ==
[2021-04-17 10:46] VITALS: RESP 18
--- NOTE | 2021-04-17 11:23 | ED ---
General Adult HPI - General Chief complaint: Recheck/Abnormal Lab/Rx Stated complaint: poss med reaction, shaking Source: patient, RN notes reviewed, old records reviewed Mode of arrival: ambulatory Limitations: no limitations - History of Present Illness Initial comments: 65-year-old well-appearing white female, alert and oriented 4, presents to the emergency room with complaints of feeling jittery and shaky since taking her new medication buspirone and venlafaxine that [facility]. She states that she was on venlafaxine before and had no problems with that and was taking it for her anxiety and depression. Patient believes it is the buspirone that is making her feel shaky so she did not take either medication yesterday or today. Patient states that she does have a history of a rapid heartbeat she just wants to make sure she is okay. She states she will be calling her doctor in the morning. -: days(s) (1) Severity scale (1-10): 0 - Related Data Home Medications Medication Instructions Recorded Confirmed Aspirin 325 mg PO DAILY 01/12/16 03/30/21 Benazepril HCl 20 mg PO DAILY 01/12/16 03/30/21 Cyanocobalamin [Vitamin B-12 1,000 mcg SQ Q30D 01/12/16 03/30/21 Injection] Docusate [Colace] 200 mg PO HS 01/12/16 03/30/21 Dubicaine 1% Ointment 1 applic RECTAL DAILY PRN 01/12/16 03/30/21 Ibandronate Sodium [Boniva] 150 mg PO Q28D 01/12/16 03/30/21 Levothyroxine Sodium [Synthroid] 100 mcg PO DAILY 01/12/16 03/30/21 Mupirocin 2% Oint [Bactroban 2% 1 applic TOPICAL DAILY PRN 01/12/16 03/30/21 Oint] Pantoprazole Sodium [Protonix] 40 mg PO HS 01/12/16 03/30/21 Polyethylene Glycol 3350 [Miralax] 25.5 gm PO DAILY 01/12/16 03/30/21 Solifenacin Succinate [Vesicare] 10 mg PO DAILY@1200 01/12/16 03/30/21 Tretinoin 1 applic TOPICAL HS 01/12/16 03/30/21 amLODIPine [Norvasc] 10 mg PO DAILY 01/12/16 03/30/21 metFORMIN HCL [Glucophage] 1,000 mg PO BID 01/12/16 03/30/21 Cyclobenzaprine [Flexeril] 5 mg PO HS PRN 05/18/17 03/30/21 Ferrous Gluconate 324 mg PO TID 05/18/17 03/30/21 Hydrocortisone Cream 1 applic TOPICAL BID PRN 05/18/17 03/30/21 [Hydrocortisone 2.5% Cream] [place]-3 Fatty Acids/Fish Oil [Fish 1 cap PO DAILY@1200 05/18/17 03/30/21 Oil 1,000 mg Softgel] Pregabalin [Lyrica] 100 mg PO TID 06/20/18 03/30/21 Alogliptin(Unknown Dose) 1 tab PO DAILY 03/20/19 03/30/21 Artificial Tears Ointment 1 gm BOTH EYES HS 03/20/19 03/30/21 [Lubrifresh Pm Ointment] Ascorbic Acid [Vitamin C] 2,000 mg PO DAILY@1200 03/20/19 03/30/21 Calcium 315mg 315 mg PO TID 03/20/19 03/30/21 Chlorhexidine Gluconate [Hibiclens] 1 applic TOPICAL DAILY PRN 03/20/19 03/30/21 Cholecalciferol (Vitamin D3) 4,000 unit PO DAILY@1200 03/20/19 03/30/21 [Vitamin D3] Cromolyn Sodium 1 drop BOTH EYES BID 03/20/19 03/30/21 Glycerin/Propylene Glycol 1 drop BOTH EYES QID PRN 03/20/19 03/30/21 [Artificial Tears Drops] Insulin Glargine,Hum.rec.anlog 16 unit SQ DAILY 03/20/19 03/30/21 [Lantus Solostar] Insulin Glargine,Hum.rec.anlog 25 unit SQ HS 03/20/19 03/30/21 [Lantus Solostar] Olopatadine HCl 1 applic BOTH EYES BID 03/20/19 03/30/21 Ondansetron [Zofran] 4 mg PO BID PRN 03/20/19 03/30/21 Ozurdex Inj-Unknown 1 injection INTRAOCULA Q84D 03/20/19 03/30/21 Simvastatin 80 mg PO HS 03/20/19 03/30/21 hydrOXYzine pamoate [hydrOXYzine 25 mg PO TID PRN 03/20/19 03/30/21 PAMOATE] Brimonidine Tartrate/Timolol 1 drop BOTH EYES BID 03/02/20 03/30/21 [Combigan 0.2%-0.5% Eye Drops] Previous Rx's Medication Instructions Recorded Clobetasol Propionate [Temovate 1 applic TOPICAL BID PRN #30 gm 03/02/20 0.05% Oint] Estrogens, Conjugated Cream 1 applicator VAGINAL DIRECTED 03/02/20 [Premarin Cream] #1 tube Allergies Allergy/AdvReac Type Severity Reaction Status Date / Time Sulfa (Sulfonamide AdvReac Rash/Hives Verified 04/17/21 10:46 Antibiotics) sulfamethoxazole AdvReac Rash/Hives Verified 04/17/21 10:46 [From Bactrim] trimethoprim [From Bactrim] AdvReac Rash/Hives Verified 04/17/21 10:46 Review of Systems ROS Statement: Those systems with pertinent positive or pertinent negative responses have been documented in the HPI. ROS Other: All systems not noted in ROS Statement are negative. Past Medical History Past Medical History: Diabetes Mellitus, GERD/Reflux, Hyperlipidemia, Hypertension, Sleep Apnea/CPAP/BIPAP, Thyroid Disorder Additional Past Medical History / Comment(s): Type II diabetes, hypothyroidism, arthritis. kidney stones in the past; hx. non healing wounds R shoulder. Osteopenia and has used Boniva for greater than 10 years. 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 She has a history of lichen sclerosus of the vulva. History of Any Multi-Drug Resistant Organisms: MRSA Date of last positivie culture/infection: 2015 MDRO Source:: buttock Past Surgical History: Cholecystectomy, Hysterectomy, Tonsillectomy Additional Past Surgical History / Comment(s): lithotripsy; colonoscopies; c ataracts, R breast lumpectomy, hemorrhoidectomy. Vaginal hysterectomy with unilateral oophorectomy 2002. Remaining ovary was removed in 2003. Bladder sling procedure. Colonoscopy 2017(next after 5yr). Past Anesthesia/Blood Transfusion Reactions: Motion Sickness, Postoperative Nausea & Vomiting (PONV) Past Psychological History: Anxiety, Depression Smoking Status: Never smoker Past Alcohol Use History: None Reported Past Drug Use History: None Reported - Past Family History Father Family Medical History: Cancer, Diabetes Mellitus Additional Family Medical History / Comment(s): Colon cancer. Mother Family Medical History: Diabetes Mellitus, Myocardial Infarction ([place]) Sister(s) Family Medical History: Coronary Artery Disease (CAD), CVA/TIA, Myocardial Infarction ([place]) Brother(s) Family Medical History: Coronary Artery Disease (CAD) General Exam Limitations: no limitations General appearance: alert, in no apparent distress Head exam: Present: atraumatic, normocephalic, normal inspection Eye exam: Present: normal appearance, PERRL, EOMI. Absent: scleral icterus, conjunctival injection, periorbital swelling Pupils: Present: normal accommodation ENT exam: Present: normal exam, normal oropharynx, mucous membranes moist Neck exam: Present: normal inspection, full ROM. Absent: tenderness, mening ismus, lymphadenopathy Respiratory exam: Present: normal lung sounds bilaterally. Absent: respiratory distress, wheezes, rales, rhonchi, stridor, chest wall tenderness, accessory muscle use, decreased breath sounds Cardiovascular Exam: Present: normal rhythm, tachycardia, normal heart sounds. Absent: systolic murmur, diastolic murmur, rubs, gallop, clicks GI/Abdominal exam: Present: soft, normal bowel sounds. Absent: distended, tenderness, guarding, rebound, rigid Back exam: Present: full ROM. Absent: tenderness, CVA tenderness (R), CVA tenderness (L), muscle spasm, paraspinal tenderness, vertebral tenderness Neurological exam: Present: alert, oriented X3, CN II-XII intact Psychiatric exam: Present: anxious Skin exam: Present: warm, dry, intact, normal color. Absent: rash, cyanosis, diaphoretic, petechiae, pallor, mottled Course Vital Signs 04/17/21 04/17/21 10:41 11:50 Temperature 98.2 F 98.3 F Pulse Rate 107 H 98 Respiratory 18 18 Rate Blood Pressure 137/82 136/86 O2 Sat by Pulse 98 99 Oximetry EKG Findings - EKG Results: EKG: sinus rhythm (Ventricular rate of 88, MT interval 0.162, QRS of 0.86, QTC of 0.469) Medical Decision Making - Medical Decision Making Patient is well-appearing vital signs are stable. She has no chest pain or shortness of breath. She states that her shakiness started after taking her new medication buspirone with her venlafaxine on 04/15. She states that she only took one on April 15 and has not taken it since. She wanted to make sure there was nothing we can give her in the hospital to make her symptoms better. Patient was offered lab work which she declined. She was agreeable to getting an EKG which showed normal sinus rhythm. Accu-Chek of 190. Case discussed with Dr. Soler who was agreeable to this plan of care - Lab Data Lab Results 04/17/21 Range/Units 11:48 POC Glucose (mg/dL) 195 H (75-99) mg/dL POC Glu Clinical Partner Brice Chew Disposition Clinical Impression: Medication reaction Disposition: HOME SELF-CARE Condition: Good Instructions (If sedation given, give patient instructions): Anxiety (ED) Additional Instructions: Stopped taking buspirone and venlafaxine but continue your other medications. Follow-up with your [place] doctor tomorrow. Return to the emergency room with any worsening symptoms, chest pain or shortness of breath. Is patient prescribed a controlled substance at d/c from ED?: No Referrals: [facility],Clinic [Primary Care Provider] - 1-2 days Time of Disposition: 11:27
[2021-04-17 11:50] LABS: Glucose,Whole Blood 195 mg/dL (75-99)
[2021-04-17 11:58] VITALS: BP 136/86; PULSE 98; TEMP 98.3
== END 2021-04-17 11:50 | disposition home or self-care (01) ==
LOC: EC 10:27
DX: R25.1 Tremor, unspecified (principal); T43.595A Adverse effect of other antipsychotics and neuroleptics, initial encounter; E11.9 Type 2 diabetes mellitus without complications; I10 Essential (primary) hypertension; E78.5 Hyperlipidemia, unspecified; K21.9 Gastro-esophageal reflux disease without esophagitis; E03.9 Hypothyroidism, unspecified; M19.90 Unspecified osteoarthritis, unspecified site; F32.9 Major depressive disorder, single episode, unspecified; F41.9 Anxiety disorder, unspecified; Z79.4 Long term (current) use of insulin; Z79.890 Hormone replacement therapy; Z79.82 Long term (current) use of aspirin; Z79.899 Other long term (current) drug therapy; Z88.2 Allergy status to sulfonamides; Z83.3 Family history of diabetes mellitus; Z82.49 Family history of ischemic heart disease and other diseases of the circulatory system
CPT/HCPCS: 36415; 93005; 99285

== ENCOUNTER 2021-04-18 19:22 | Emergency (ER) | payer OTHER ==
[2021-04-18 19:29] VITALS: RESP 18
[2021-04-18] MEDS ORDERED: SODIUM CHLORIDE 0.9% 1,000 ML IV STA (19:53)
[2021-04-18] MEDS ORDERED: ONDANSETRON 4 MG/2 ML VIAL IVP STA (19:53)
[2021-04-18] MEDS ORDERED: diphenhydrAMINE 50 MG/ML 1 ML VIAL IVP STA (20:02)
[2021-04-18] MEDS ORDERED: METOCLOPRAMIDE 5 MG/ML 2 ML VIAL IVP STA (20:02)
[2021-04-18 20:36] LABS: Basophils # (A) 0.1 k/uL (0-0.2); Basophils % (A) 1 %; Eosinophils # (A) 0.1 k/uL (0-0.7); Eosinophils % (A) 1 %; HCT 45.9 % (34.0-46.0); HGB 15.6 gm/dL (11.4-16.0); Lymphocytes # (A) 1.8 k/uL (1.0-4.8); Lymphocytes % (A) 17 %; MCHC 34.1 g/dL (31.0-37.0); MCV 90.9 fL (80.0-100.0); Mean Platelet Volume 8.5; Monocytes # (A) 0.7 k/uL (0-1.0); Monocytes % (A) 7 %; Neutrophils # (A) 7.6 k/uL (1.3-7.7); Neutrophils % (A) 72 %; Platelet Count 286 k/uL (150-450); RBC 5.05 m/uL (3.80-5.40); RDW 14.3 % (11.5-15.5); WBC 10.5 k/uL (3.8-10.6)
[2021-04-18 20:44] LABS: ALT 43 U/L (4-34); AST 38 U/L (14-36); African American GFR (CKD) >90 (>60 ml/min/1.73 sqM); Albumin 4.9 g/dL (3.5-5.0); Alkaline Phosphatase 80 U/L (38-126); Anion Gap 14 mmol/L; Blood Urea Nitrogen 7 mg/dL (7-17); Calcium 10.7 mg/dL (8.4-10.2); Carbon Dioxide 23 mmol/L (22-30); Chloride 100 mmol/L (98-107); Glucose 213 mg/dL (74-99); Non-African American GFR(CKD) >90 (>60 ml/min/1.73 sqM); Potassium 3.7 mmol/L (3.5-5.1); Sodium 137 mmol/L (137-145); Total Bilirubin 0.4 mg/dL (0.2-1.3); Total Protein 7.6 g/dL (6.3-8.2)
[2021-04-18 21:27] LABS: Appearance,Urine Clear (Clear); Bacteria,Urine Rare /hpf; Bilirubin,Urine Negative (Negative); Blood,Urine Negative (Negative); Color,Urine Light Yellow; Glucose,Urine (UA) Negative (Negative); Ketones,Urine Negative (Negative); Leukocyte Esterase,Urine Moderate (Negative); Mucus,Urine Rare /hpf; Nitrite,Urine Negative (Negative); Protein,Urine Negative (Negative); RBC,Urine 1 /hpf (0-5); Specific Gravity,Urine 1.005 (1.001-1.035); Squamous Epithelial Cell,Urine <1 /hpf (0-4); Urobilinogen,Urine <2.0 mg/dL (<2.0); WBC,Urine 15 /hpf (0-5)
--- NOTE | 2021-04-18 21:38 | ED ---
Nausea/Vomiting/Diarrhea HPI - General Chief complaint: Nausea/Vomiting/Diarrhea Stated complaint: vomiting Time Seen by Provider: 04/18/21 19:35 Source: patient Mode of arrival: ambulatory Limitations: no limitations - History of Present Illness Initial comments: 65-year-old female presentpresents to the emergency department for a chief complaint of nausea vomiting. Patient has history of anxiety and yesterday was started on venlafaxine and buspirone. Patient reports once she began taking the medication, she developed nausea or vomiting. States she was evaluated yesterday emergency department, felt better and was discharged. She was advised the medication would be out of her system and about a 24-hour period. Patient reports she went home and her anxiety is not allowing her to eat or sleep. Patient reports she is prescribed Xanax but was advised to stop taking it because of her sleep apnea. Patient reports her machine is not available at this time. States whenever she has acute anxiety episodes, she becomes nauseous and tends to vomit frequently. She denies any fevers or chills. Denies any chest pain shortness of breath at this time.patient reports she has been currently underlot of stress secondary to family members passing from cancer and heart attacks. - Related Data Home Medications Medication Instructions Recorded Confirmed Aspirin 325 mg PO DAILY 01/12/16 03/30/21 Benazepril HCl 20 mg PO DAILY 01/12/16 03/30/21 Cyanocobalamin [Vitamin B-12 1,000 mcg SQ Q30D 01/12/16 03/30/21 Injection] Docusate [Colace] 200 mg PO HS 01/12/16 03/30/21 Dubicaine 1% Ointment 1 applic RECTAL DAILY PRN 01/12/16 03/30/21 Ibandronate Sodium [Boniva] 150 mg PO Q28D 01/12/16 03/30/21 Levothyroxine Sodium [Synthroid] 100 mcg PO DAILY 01/12/16 03/30/21 Mupirocin 2% Oint [Bactroban 2% 1 applic TOPICAL DAILY PRN 01/12/16 03/30/21 Oint] Pantoprazole Sodium [Protonix] 40 mg PO HS 01/12/16 03/30/21 Polyethylene Glycol 3350 [Miralax] 25.5 gm PO DAILY 01/12/16 03/30/21 Solifenacin Succinate [Vesicare] 10 mg PO DAILY@1200 01/12/16 03/30/21 Tretinoin 1 applic TOPICAL HS 01/12/16 03/30/21 amLODIPine [Norvasc] 10 mg PO DAILY 01/12/16 03/30/21 metFORMIN HCL [Glucophage] 1,000 mg PO BID 01/12/16 03/30/21 Cyclobenzaprine [Flexeril] 5 mg PO HS PRN 05/18/17 03/30/21 Ferrous Gluconate 324 mg PO TID 05/18/17 03/30/21 Hydrocortisone Cream 1 applic TOPICAL BID PRN 05/18/17 03/30/21 [Hydrocortisone 2.5% Cream] [place]-3 Fatty Acids/Fish Oil [Fish 1 cap PO DAILY@1200 05/18/17 03/30/21 Oil 1,000 mg Softgel] Pregabalin [Lyrica] 100 mg PO TID 06/20/18 03/30/21 Alogliptin(Unknown Dose) 1 tab PO DAILY 03/20/19 03/30/21 Artificial Tears Ointment 1 gm BOTH EYES HS 03/20/19 03/30/21 [Lubrifresh Pm Ointment] Ascorbic Acid [Vitamin C] 2,000 mg PO DAILY@1200 03/20/19 03/30/21 Calcium 315mg 315 mg PO TID 03/20/19 03/30/21 Chlorhexidine Gluconate [Hibiclens] 1 applic TOPICAL DAILY PRN 03/20/19 03/30/21 Cholecalciferol (Vitamin D3) 4,000 unit PO DAILY@1200 03/20/19 03/30/21 [Vitamin D3] Cromolyn Sodium 1 drop BOTH EYES BID 03/20/19 03/30/21 Glycerin/Propylene Glycol 1 drop BOTH EYES QID PRN 03/20/19 03/30/21 [Artificial Tears Drops] Insulin Glargine,Hum.rec.anlog 16 unit SQ DAILY 03/20/19 03/30/21 [Lantus Solostar] Insulin Glargine,Hum.rec.anlog 25 unit SQ HS 03/20/19 03/30/21 [Lantus Solostar] Olopatadine HCl 1 applic BOTH EYES BID 03/20/19 03/30/21 Ondansetron [Zofran] 4 mg PO BID PRN 03/20/19 03/30/21 Ozurdex Inj-Unknown 1 injection INTRAOCULA Q84D 03/20/19 03/30/21 Simvastatin 80 mg PO HS 03/20/19 03/30/21 hydrOXYzine pamoate [hydrOXYzine 25 mg PO TID PRN 03/20/19 03/30/21 PAMOATE] Brimonidine Tartrate/Timolol 1 drop BOTH EYES BID 03/02/20 03/30/21 [Combigan 0.2%-0.5% Eye Drops] Previous Rx's Medication Instructions Recorded Clobetasol Propionate [Temovate 1 applic TOPICAL BID PRN #30 gm 03/02/20 0.05% Oint] Estrogens, Conjugated Cream 1 applicator VAGINAL DIRECTED 03/02/20 [Premarin Cream] #1 tube Metoclopramide [Reglan] 10 mg PO TID PRN #15 tab 04/18/21 Allergies Allergy/AdvReac Type Severity Reaction Status Date / Time Sulfa (Sulfonamide AdvReac Rash/Hives Verified 04/18/21 19:29 Antibiotics) sulfamethoxazole AdvReac Rash/Hives Verified 04/18/21 19:29 [From Bactrim] trimethoprim [From Bactrim] AdvReac Rash/Hives Verified 04/18/21 19:29 Review of Systems ROS Statement: Those systems with pertinent positive or pertinent negative responses have been documented in the HPI. ROS Other: All systems not noted in ROS Statement are negative. Past Medical History Past Medical History: Diabetes Mellitus, GERD/Reflux, Hyperlipidemia, Hypertension, Sleep Apnea/CPAP/BIPAP, Thyroid Disorder Additional Past Medical History / Comment(s): Type II diabetes, hypothyroidism, arthritis. kidney stones in the past; hx. non healing wounds R shoulder. Osteopenia and has used Boniva for greater than 10 years. 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 She has a history of lichen sclerosus of the vulva. History of Any Multi-Drug Resistant Organisms: MRSA Date of last positivie culture/infection: 2015 MDRO Source:: buttock Past Surgical History: Cholecystectomy, Hysterectomy, Tonsillectomy Additional Past Surgical History / Comment(s): lithotripsy; colonoscopies; cataracts, R breast lumpectomy, hemorrhoidectomy. Vaginal hysterectomy with unilateral oophorectomy 2002. Remaining ovary was removed in 2003. Bladder sling procedure. Colonoscopy 2017(next after 5yr). Past Anesthesia/Blood Transfusion Reactions: Motion Sickness, Postoperative Nausea & Vomiting (PONV) Past Psychological History: Anxiety, Depression Smoking Status: Never smoker Past Alcohol Use History: None Reported Past Drug Use History: None Reported - Past Family History Father Family Medical History: Cancer, Diabetes Mellitus Additional Family Medical History / Comment(s): Colon cancer. Mother Family Medical History: Diabetes Mellitus, Myocardial Infarction ([place]) Sister(s) Family Medical History: Coronary Artery Disease (CAD), CVA/TIA, Myocardial Infarction ([place]) Brother(s) Family Medical History: Coronary Artery Disease (CAD) General Exam Limitations: no limitations General appearance: alert, in no apparent distress, anxious Head exam: Present: atraumatic, normocephalic, normal inspection Eye exam: Present: normal appearance Pupils: Present: normal accommodation ENT exam: Present: normal exam, normal oropharynx, mucous membranes moist Neck exam: Present: normal inspection, full ROM. Absent: tenderness Respiratory exam: Present: normal lung sounds bilaterally. Absent: respiratory distress, wheezes, rales, rhonchi, stridor Cardiovascular Exam: Present: regular rate, normal rhythm, normal heart sounds. Absent: systolic murmur GI/Abdominal exam: Present: soft. Absent: distended, tenderness, guarding, rebound Extremities exam: Present: normal inspection, full ROM, normal capillary refill Back exam: Present: normal inspection, full ROM. Absent: tenderness, CVA tenderness (R), CVA tenderness (L) Neurological exam: Present: alert, oriented X3, CN II-XII intact, normal gait Psychiatric exam: Present: normal affect, anxious Skin exam: Present: warm, dry, intact, normal color Course Vital Signs 04/18/21 04/18/21 19:25 22:25 Temperature 98.1 F 98.4 F Pulse Rate 105 H 100 Respiratory 18 18 Rate Blood Pressure 148/92 149/94 O2 Sat by Pulse 97 100 Oximetry Medical Decision Making - Medical Decision Making 65-year-old female presents to emergency Department with a chief complaint of nausea vomiting. Physical examination, patient is quite anxious. She has not taken the buspirone and venlafaxine since yesterday. It is common for her to experience nausea and vomiting whenever she can return to his acute anxiety. I suspect this is similar case as well.CBC unremarkable. CMP shows hyperglycemia, patient is diabetic and insulin-dependent. UA shows white blood cells and elevated leukocyte esterase with rare bacteria. She is not experiencing any UTI like symptoms. I will not treat wit abx at this time. urine culture pending. she was given IV fluids, Reglan and Benadryl. On reevaluation, she reports improvement in symptoms. She does not have any other GI related symptoms. I will prescribe Reglan and advised to take it with Benadryl. She will follow with her primary care physician. Return parameters were thoroughly discussed patient is attending agreeable. case case discussed with dr ascencio - Lab Data Result diagrams: 04/18/21 20:22 04/18/21 19:53 Lab Results 04/18/21 04/18/21 04/18/21 Range/Units 19:53 20:22 20:22 WBC 10.5 (3.8-10.6) k/uL RBC 5.05 (3.80-5.40) m/uL Hgb 15.6 (11.4-16.0) gm/dL Hct 45.9 (34.0-46.0) % MCV 90.9 (80.0-100.0) fL MCH 31.0 (25.0-35.0) pg MCHC 34.1 (31.0-37.0) g/dL RDW 14.3 (11.5-15.5) % Plt Count 286 (150-450) k/uL MPV 8.5 Neutrophils % 72 % Lymphocytes % 17 % Monocytes % 7 % Eosinophils % 1 % Basophils % 1 % Neutrophils # 7.6 (1.3-7.7) k/uL Lymphocytes # 1.8 (1.0-4.8) k/uL Monocytes # 0.7 (0-1.0) k/uL Eosinophils # 0.1 (0-0.7) k/uL Basophils # 0.1 (0-0.2) k/uL Sodium 137 (137-145) mmol/L Potassium 3.7 (3.5-5.1) mmol/L Chloride 100 (98-107) mmol/L Carbon Dioxide 23 (22-30) mmol/L Anion Gap 14 mmol/L BUN 7 (7-17) mg/dL Creatinine 0.59 (0.52-1.04) mg/dL Est GFR (CKD-EPI)AfAm >90 (>60 ml/min/1.73 sqM) Est GFR (CKD-EPI)NonAf >90 (>60 ml/min/1.73 sqM) Glucose 213 H (74-99) mg/dL Calcium 10.7 H (8.4-10.2) mg/dL Total Bilirubin 0.4 (0.2-1.3) mg/dL AST 38 H (14-36) U/L ALT 43 H (4-34) U/L Alkaline Phosphatase 80 (38-126) U/L Total Protein 7.6 (6.3-8.2) g/dL Albumin 4.9 (3.5-5.0) g/dL Urine Color Light Yellow Urine Appearance Clear (Clear) Urine pH 7.0 (5.0-8.0) Ur Specific [place] 1.005 (1.001-1.035) Urine Protein Negative (Negative) Urine Glucose (UA) Negative (Negative) Urine Ketones Negative (Negative) Urine Blood Negative (Negative) Urine Nitrite Negative (Negative) Urine Bilirubin Negative (Negative) Urine Urobilinogen <2.0 (<2.0) mg/dL Ur Leukocyte Esterase Moderate H (Negative) Urine RBC 1 (0-5) /hpf Urine WBC 15 H (0-5) /hpf Ur Squamous Epith Cells <1 (0-4) /hpf Urine Bacteria Rare H (None) /hpf Urine Mucus Rare H (None) /hpf Disposition Clinical Impression: Nausea & vomiting, Acute anxiety Disposition: HOME SELF-CARE Condition: Stable Instructions (If sedation given, give patient instructions): Acute Nausea and Vomiting (ED) Additional Instructions: Please return to the Emergency Department if symptoms worsen or any other concerns. Prescriptions: Metoclopramide [Reglan] 10 mg PO TID PRN #15 tab PRN Reason: GERD Is patient prescribed a controlled substance at d/c from ED?: No Referrals: [facility],Clinic [Primary Care Provider] - 1-2 days Time of Disposition: 22:05
[2021-04-18 22:29] VITALS: BP 149/94; PULSE 100; TEMP 98.4
== END 2021-04-18 22:25 | disposition home or self-care (01) ==
LOC: EC 19:22
DX: R11.2 Nausea with vomiting, unspecified (principal); F41.9 Anxiety disorder, unspecified; E11.9 Type 2 diabetes mellitus without complications; I10 Essential (primary) hypertension; E78.5 Hyperlipidemia, unspecified; K21.9 Gastro-esophageal reflux disease without esophagitis; E03.9 Hypothyroidism, unspecified; M19.90 Unspecified osteoarthritis, unspecified site; F32.9 Major depressive disorder, single episode, unspecified; Z79.4 Long term (current) use of insulin; Z79.890 Hormone replacement therapy; Z79.82 Long term (current) use of aspirin; Z79.899 Other long term (current) drug therapy; Z88.2 Allergy status to sulfonamides; Z88.1 Allergy status to other antibiotic agents; Z83.3 Family history of diabetes mellitus; Z82.49 Family history of ischemic heart disease and other diseases of the circulatory system
CPT/HCPCS: 36415; 93005; 80053; 85025; 81001; 87086; 96374; 96375; 96361; 99284; J1200; J2765

== ENCOUNTER 2021-05-05 05:42 | Emergency (ER) | payer OTHER ==
[2021-05-05 05:48] VITALS: PULSE 99; TEMP 98.3
[2021-05-05] MEDS ORDERED: SODIUM CHLORIDE 0.9% 1,000 ML IV STA (06:06)
[2021-05-05] MEDS ORDERED: LORazepam 1 MG TAB PO STA (06:06)
[2021-05-05] MEDS ORDERED: METOCLOPRAMIDE 5 MG/ML 2 ML VIAL IVP STA (06:07)
[2021-05-05 06:31] LABS: Basophils % (A) 0 %; Eosinophils # (A) 0.1 k/uL (0-0.7); Eosinophils % (A) 1 %; HCT 41.5 % (34.0-46.0); HGB 14.1 gm/dL (11.4-16.0); Lymphocytes # (A) 1.3 k/uL (1.0-4.8); Lymphocytes % (A) 14 %; MCHC 33.9 g/dL (31.0-37.0); MCV 91.4 fL (80.0-100.0); Monocytes # (A) 0.5 k/uL (0-1.0); Monocytes % (A) 5 %; Neutrophils # (A) 7.5 k/uL (1.3-7.7); Neutrophils % (A) 78 %; Platelet Count 235 k/uL (150-450); RBC 4.54 m/uL (3.80-5.40); RDW 14.5 % (11.5-15.5); WBC 9.6 k/uL (3.8-10.6)
[2021-05-05 06:42] LABS: ALT 27 U/L (4-34); AST 31 U/L (14-36); African American GFR (CKD) >90 (>60 ml/min/1.73 sqM); Albumin 4.3 g/dL (3.5-5.0); Alkaline Phosphatase 63 U/L (38-126); Anion Gap 11 mmol/L; Blood Urea Nitrogen 7 mg/dL (7-17); Calcium 9.5 mg/dL (8.4-10.2); Carbon Dioxide 26 mmol/L (22-30); Chloride 103 mmol/L (98-107); Glucose 199 mg/dL (74-99); Non-African American GFR(CKD) >90 (>60 ml/min/1.73 sqM); Potassium 3.7 mmol/L (3.5-5.1); Sodium 140 mmol/L (137-145); Total Bilirubin 0.4 mg/dL (0.2-1.3); Total Protein 6.9 g/dL (6.3-8.2)
[2021-05-05 07:16] VITALS: BP 140/74; RESP 20
--- NOTE | 2021-05-05 07:23 | ED ---
Anxiety HPI - General Chief Complaint: Anxiety Stated Complaint: Vomiting Time Seen by Provider: 05/05/21 06:00 Source: patient, RN notes reviewed Mode of arrival: ambulatory - History of Present Illness Initial Comments: Patient is a 65-year-old female that presents to the emergency department complaining of anxiety with some nausea. She notes that she was started on a new medication last week for her anxiety that she thinks seems to be making her stomach upset. She notes that she has not been able to keep any food down or water. Sheate applesauce around 3:00 that came up also.. She notes that she has a endoscopy scheduled within the month at the [place]. She denied any other symptoms or complaints at this time. She does have a past medical history significant for diabetes several medication reactions nausea vomiting. She denied any chest pain shortness of breath headache diarrhea constipation fever fatigue chills. - Related Data Home Medications: Home Medications Medication Instructions Recorded Confirmed Aspirin 325 mg PO DAILY 01/12/16 03/30/21 Benazepril HCl 20 mg PO DAILY 01/12/16 03/30/21 Cyanocobalamin [Vitamin B-12 1,000 mcg SQ Q30D 01/12/16 03/30/21 Injection] Docusate [Colace] 200 mg PO HS 01/12/16 03/30/21 Dubicaine 1% Ointment 1 applic RECTAL DAILY PRN 01/12/16 03/30/21 Ibandronate Sodium [Boniva] 150 mg PO Q28D 01/12/16 03/30/21 Levothyroxine Sodium [Synthroid] 100 mcg PO DAILY 01/12/16 03/30/21 Mupirocin 2% Oint [Bactroban 2% 1 applic TOPICAL DAILY PRN 01/12/16 03/30/21 Oint] Pantoprazole Sodium [Protonix] 40 mg PO HS 01/12/16 03/30/21 Polyethylene Glycol 3350 [Miralax] 25.5 gm PO DAILY 01/12/16 03/30/21 Solifenacin Succinate [Vesicare] 10 mg PO DAILY@1200 01/12/16 03/30/21 Tretinoin 1 applic TOPICAL HS 01/12/16 03/30/21 amLODIPine [Norvasc] 10 mg PO DAILY 01/12/16 03/30/21 metFORMIN HCL [Glucophage] 1,000 mg PO BID 01/12/16 03/30/21 Cyclobenzaprine [Flexeril] 5 mg PO HS PRN 05/18/17 03/30/21 Ferrous Gluconate 324 mg PO TID 05/18/17 03/30/21 Hydrocortisone Cream 1 applic TOPICAL BID PRN 05/18/17 03/30/21 [Hydrocortisone 2.5% Cream] [place]-3 Fatty Acids/Fish Oil [Fish 1 cap PO DAILY@1200 05/18/17 03/30/21 Oil 1,000 mg Softgel] Pregabalin [Lyrica] 100 mg PO TID 06/20/18 03/30/21 Alogliptin(Unknown Dose) 1 tab PO DAILY 03/20/19 03/30/21 Artificial Tears Ointment 1 gm BOTH EYES HS 03/20/19 03/30/21 [Lubrifresh Pm Ointment] Ascorbic Acid [Vitamin C] 2,000 mg PO DAILY@1200 03/20/19 03/30/21 Calcium 315mg 315 mg PO TID 03/20/19 03/30/21 Chlorhexidine Gluconate [Hibiclens] 1 applic TOPICAL DAILY PRN 03/20/19 03/30/21 Cholecalciferol (Vitamin D3) 4,000 unit PO DAILY@1200 03/20/19 03/30/21 [Vitamin D3] Cromolyn Sodium 1 drop BOTH EYES BID 03/20/19 03/30/21 Glycerin/Propylene Glycol 1 drop BOTH EYES QID PRN 03/20/19 03/30/21 [Artificial Tears Drops] Insulin Glargine,Hum.rec.anlog 16 unit SQ DAILY 03/20/19 03/30/21 [Lantus Solostar] Insulin Glargine,Hum.rec.anlog 25 unit SQ HS 03/20/19 03/30/21 [Lantus Solostar] Olopatadine HCl 1 applic BOTH EYES BID 03/20/19 03/30/21 Ondansetron [Zofran] 4 mg PO BID PRN 03/20/19 03/30/21 Ozurdex Inj-Unknown 1 injection INTRAOCULA Q84D 03/20/19 03/30/21 Simvastatin 80 mg PO HS 03/20/19 03/30/21 hydrOXYzine pamoate [hydrOXYzine 25 mg PO TID PRN 03/20/19 03/30/21 PAMOATE] Brimonidine Tartrate/Timolol 1 drop BOTH EYES BID 03/02/20 03/30/21 [Combigan 0.2%-0.5% Eye Drops] Previous Rx's Medication Instructions Recorded Clobetasol Propionate [Temovate 1 applic TOPICAL BID PRN #30 gm 03/02/20 0.05% Oint] Estrogens, Conjugated Cream 1 applicator VAGINAL DIRECTED 03/02/20 [Premarin Cream] #1 tube Metoclopramide [Reglan] 10 mg PO TID PRN #15 tab 04/18/21 Allergies/Adverse Reactions: Allergies Allergy/AdvReac Type Severity Reaction Status Date / Time Sulfa (Sulfonamide AdvReac Rash/Hives Verified 05/05/21 05:48 Antibiotics) sulfamethoxazole AdvReac Rash/Hives Verified 05/05/21 05:48 [From Bactrim] trimethoprim [From Bactrim] AdvReac Rash/Hives Verified 05/05/21 05:48 Review of Systems ROS Statement: Those systems with pertinent positive or pertinent negative responses have been documented in the HPI. ROS Other: All systems not noted in ROS Statement are negative. Past Medical History Past Medical History: Diabetes Mellitus, GERD/Reflux, Hyperlipidemia, Hypertension, Sleep Apnea/CPAP/BIPAP, Thyroid Disorder Additional Past Medical History / Comment(s): Type II diabetes, hypothyroidism, arthritis. kidney stones in the past; hx. non healing wounds R shoulder. Osteopenia and has used Boniva for greater than 10 years. 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 She has a history of lichen sclerosus of the vulva. History of Any Multi-Drug Resistant Organisms: MRSA Date of last positivie culture/infection: 2015 MDRO Source:: buttock Past Surgical History: Cholecystectomy, Hysterectomy, Tonsillectomy Additional Past Surgical History / Comment(s): lithotripsy; colonoscopies; cataracts, R breast lumpectomy, hemorrhoidectomy. Vaginal hysterectomy with unilateral oophorectomy 2002. Remaining ovary was removed in 2003. Bladder sling procedure. Colonoscopy 2017(next after 5yr). Past Anesthesia/Blood Transfusion Reactions: Motion Sickness, Postoperative Nausea & Vomiting (PONV) Past Psychological History: Anxiety, Depression Smoking Status: Never smoker Past Alcohol Use History: None Reported Past Drug Use History: None Reported - Past Family History Father Family Medical History: Cancer, Diabetes Mellitus Additional Family Medical History / Comment(s): Colon cancer. Mother Family Medical History: Diabetes Mellitus, Myocardial Infarction ([place]) Sister(s) Family Medical History: Coronary Artery Disease (CAD), CVA/TIA, Myocardial Infarction ([place]) Brother(s) Family Medical History: Coronary Artery Disease (CAD) General Exam Limitations: no limitations General appearance: alert, in no apparent distress Head exam: Present: atraumatic, normocephalic, normal inspection Eye exam: Present: normal appearance, PERRL, EOMI. Absent: scleral icterus, conjunctival injection, periorbital swelling Neck exam: Present: normal inspection Respiratory exam: Present: normal lung sounds bilaterally. Absent: respiratory distress, wheezes, rales, rhonchi, stridor Cardiovascular Exam: Present: regular rate, normal rhythm, normal heart sounds. Absent: systolic murmur, diastolic murmur, rubs, gallop, clicks GI/Abdominal exam: Present: soft, normal bowel sounds. Absent: distended, tenderness, guarding, rebound, rigid Extremities exam: Present: normal inspection, full ROM, normal capillary refill. Absent: tenderness, pedal edema, joint swelling, calf tenderness Neurological exam: Present: alert, oriented X3 Psychiatric exam: Present: normal affect, normal mood, anxious Skin exam: Present: warm, dry, intact, normal color. Absent: rash Course Vital Signs 05/05/21 05/05/21 05:46 07:13 Temperature 98.3 F Pulse Rate 99 99 Respiratory 18 20 Rate Blood Pressure 139/75 140/74 O2 Sat by Pulse 99 99 Oximetry Medical Decision Making - Medical Decision Making 65-year-old female complaining of anxiety with some nausea and vomiting due to medication. Labs, 1 L normal saline, 1 mg of Ativan, 10 mg of Reglan ordered. Labs unremarkable. Case with Dr. Flood, patient discharge home with follow-up to primary care. - Lab Data Result diagrams: 05/05/21 06:12 05/05/21 06:12 Lab Results 05/05/21 05/05/21 05/05/21 Range/Units 06:12 06:12 06:12 WBC 9.6 (3.8-10.6) k/uL RBC 4.54 (3.80-5.40) m/uL Hgb 14.1 (11.4-16.0) gm/dL Hct 41.5 (34.0-46.0) % MCV 91.4 (80.0-100.0) fL MCH 31.0 (25.0-35.0) pg MCHC 33.9 (31.0-37.0) g/dL RDW 14.5 (11.5-15.5) % Plt Count 235 (150-450) k/uL MPV 8.0 Neutrophils % 78 % Lymphocytes % 14 % Monocytes % 5 % Eosinophils % 1 % Basophils % 0 % Neutrophils # 7.5 (1.3-7.7) k/uL Lymphocytes # 1.3 (1.0-4.8) k/uL Monocytes # 0.5 (0-1.0) k/uL Eosinophils # 0.1 (0-0.7) k/uL Basophils # 0.0 (0-0.2) k/uL Sodium 140 (137-145) mmol/L Potassium 3.7 (3.5-5.1) mmol/L Chloride 103 (98-107) mmol/L Carbon Dioxide 26 (22-30) mmol/L Anion Gap 11 mmol/L BUN 7 (7-17) mg/dL Creatinine 0.55 (0.52-1.04) mg/dL Est GFR (CKD-EPI)AfAm >90 (>60 ml/min/1.73 sqM) Est GFR (CKD-EPI)NonAf >90 (>60 ml/min/1.73 sqM) Glucose 199 H (74-99) mg/dL Calcium 9.5 (8.4-10.2) mg/dL Total Bilirubin 0.4 (0.2-1.3) mg/dL AST 31 (14-36) U/L ALT 27 (4-34) U/L Alkaline Phosphatase 63 (38-126) U/L Total Protein 6.9 (6.3-8.2) g/dL Albumin 4.3 (3.5-5.0) g/dL Urine Color Light Yellow Urine Appearance Clear (Clear) Urine pH 7.5 (5.0-8.0) Ur Specific [place] 1.006 (1.001-1.035) Urine Protein Negative (Negative) Urine Glucose (UA) Negative (Negative) Urine Ketones Negative (Negative) Urine Blood Negative (Negative) Urine Nitrite Negative (Negative) Urine Bilirubin Negative (Negative) Urine Urobilinogen <2.0 (<2.0) mg/dL Ur Leukocyte Esterase Trace H (Negative) Urine WBC 4 (0-5) /hpf Ur Squamous Epith Cells <1 (0-4) /hpf Urine Mucus Rare H (None) /hpf Acetone, Qual (Negative) 05/05/21 Range/Units 06:12 WBC (3.8-10.6) k/uL RBC (3.80-5.40) m/uL Hgb (11.4-16.0) gm/dL Hct (34.0-46.0) % MCV (80.0-100.0) fL MCH (25.0-35.0) pg MCHC (31.0-37.0) g/dL RDW (11.5-15.5) % Plt Count (150-450) k/uL MPV Neutrophils % % Lymphocytes % % Monocytes % % Eosinophils % % Basophils % % Neutrophils # (1.3-7.7) k/uL Lymphocytes # (1.0-4.8) k/uL Monocytes # (0-1.0) k/uL Eosinophils # (0-0.7) k/uL Basophils # (0-0.2) k/uL Sodium (137-145) mmol/L Potassium (3.5-5.1) mmol/L Chloride (98-107) mmol/L Carbon Dioxide (22-30) mmol/L Anion Gap mmol/L BUN (7-17) mg/dL Creatinine (0.52-1.04) mg/dL Est GFR (CKD-EPI)AfAm (>60 ml/min/1.73 sqM) Est GFR (CKD-EPI)NonAf (>60 ml/min/1.73 sqM) Glucose (74-99) mg/dL Calcium (8.4-10.2) mg/dL Total Bilirubin (0.2-1.3) mg/dL AST (14-36) U/L ALT (4-34) U/L Alkaline Phosphatase (38-126) U/L Total Protein (6.3-8.2) g/dL Albumin (3.5-5.0) g/dL Urine Color Urine Appearance (Clear) Urine pH (5.0-8.0) Ur Specific [place] (1.001-1.035) Urine Protein (Negative) Urine Glucose (UA) (Negative) Urine Ketones (Negative) Urine Blood (Negative) Urine Nitrite (Negative) Urine Bilirubin (Negative) Urine Urobilinogen (<2.0) mg/dL Ur Leukocyte Esterase (Negative) Urine WBC (0-5) /hpf Ur Squamous Epith Cells (0-4) /hpf Urine Mucus (None) /hpf Acetone, Qual Negative (Negative) Disposition Clinical Impression: Acute anxiety, Nausea & vomiting Disposition: HOME SELF-CARE Condition: Stable Instructions (If sedation given, give patient instructions): Generalized Anxiety Disorder (ED) Additional Instructions: Please return to the Emergency Department if symptoms worsen or any other concerns. Follow-up with primary care in 1-2 days. Discontinue taking medication due to adverse reaction, talked to primary care about alternative. Increase fluids, get plenty rest. Is patient prescribed a controlled substance at d/c from ED?: No Referrals: [facility],Clinic [Primary Care Provider] - 1-2 days Time of Disposition: 08:06
[2021-05-05 07:46] LABS: Appearance,Urine Clear (Clear); Bilirubin,Urine Negative (Negative); Blood,Urine Negative (Negative); Color,Urine Light Yellow; Glucose,Urine (UA) Negative (Negative); Ketones,Urine Negative (Negative); Leukocyte Esterase,Urine Trace (Negative); Mucus,Urine Rare /hpf; Nitrite,Urine Negative (Negative); PH, Urine 7.5 (5.0-8.0); Protein,Urine Negative (Negative); Specific Gravity,Urine 1.006 (1.001-1.035); Squamous Epithelial Cell,Urine <1 /hpf (0-4); Urobilinogen,Urine <2.0 mg/dL (<2.0); WBC,Urine 4 /hpf (0-5)
== END 2021-05-05 08:19 | disposition home or self-care (01) ==
LOC: EC 05:42
DX: F41.9 Anxiety disorder, unspecified (principal); R11.2 Nausea with vomiting, unspecified; E11.9 Type 2 diabetes mellitus without complications; I10 Essential (primary) hypertension; E78.5 Hyperlipidemia, unspecified; K21.9 Gastro-esophageal reflux disease without esophagitis; E03.9 Hypothyroidism, unspecified; M19.90 Unspecified osteoarthritis, unspecified site; F32.9 Major depressive disorder, single episode, unspecified; Z79.4 Long term (current) use of insulin; Z79.890 Hormone replacement therapy; Z79.82 Long term (current) use of aspirin; Z79.899 Other long term (current) drug therapy; Z88.2 Allergy status to sulfonamides; Z88.1 Allergy status to other antibiotic agents
CPT/HCPCS: 36415; 80053; 82009; 85025; 81001; 96374; 96361 ×2; 99284; J2765

== ENCOUNTER → 2021-10-20 | Outpatient (CLI) | payer OTHER ==
--- NOTE | 2021-10-20 09:14 | CT ---
EXAMINATION TYPE: CT brain wo con DATE OF EXAM: 10/20/2021 COMPARISON: None available HISTORY: Headache CT DLP: 1094 mGycm Automated exposure control for dose reduction was used. TECHNIQUE: CT scan of the brain is performed without IV contrast administration. FINDINGS: Questionable minimal bilateral cerebral white matter chronic microvascular ischemic changes. No acute intracranial hemorrhage. No gross acute cortical infarct. No midline shift, herniation or ventricule ctomy. Unremarkable oliver-white matter differentiation, basal cisterns, sella and CP angles. No gross space-o ccupying lesion, vasogenic edema or mass effect. Unremarkable orbits. Clear visualized paranasal sinuses. Hypopneumatized partially opacified mastoid air cells, please correlate clinically for chronic mastoiditis. Unremarkable calvarial bones. IMPRESSION: No acute intracranial abnormality or gross space-occupying lesion by this nonenhanced CT scan. Possib le chronic mastoiditis, please correlate clinically.
== END | disposition home or self-care (01) ==
LOC: RADCTMAIN 06:58
DX: R51.9 Headache, unspecified (principal)
CPT/HCPCS: 70450

== ENCOUNTER → 2022-05-02 | Outpatient (CLI) | payer OTHER ==
[2022-05-02 11:12] VITALS: BP 113/70; PULSE 63; RESP 17; TEMP 98.5
--- NOTE | 2022-05-02 12:07 | P.HPOB ---
History of Present Illness H&P Date: 05/02/22 Chief Complaint: The patient is here for her routine gynecologic exam and ma mmogram. This is a 66-year-old G0 with an LMP of 2002. She is status post vaginal hysterectomy with BSO for benign reasons. She has a history of lichen sclerosus of the vulva which has been controlled with Temovate ointment. She uses this as needed. She states she has only needed to use the ointment infrequently over the past year. She also continues to use Premarin vaginal cream which helps with the feelings of vaginal dryness and also helps with the vulvar symptoms associated with the lichen sclerosus. She is otherwise without gynecologic complaints. Review of Systems She has lost about 7 pounds over the past year. She denies respiratory, cardiac, or GI problems. Neuro: She has been experiencing occasional dizziness and she is currently undergoing a workup for this. Past Medical History Past Medical History: Diabetes Mellitus, GERD/Reflux, Hyperlipidemia, Hypertension, Sleep Apnea/CPAP/BIPAP, Thyroid Disorder Additional Past Medical History / Comment(s): Type II diabetes, hypothyroidism, arthritis. kidney stones in the past; hx. non healing wounds R shoulder. Osteopenia and has used Boniva for greater than 10 years. 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 She has a history of lichen sclerosus of the vulva. History of Any Multi-Drug Resistant Organisms: MRSA Date of last positivie culture/infection: 2016 MDRO Source:: buttock Past Surgical History: Cholecystectomy, Hysterectomy, Tonsillectomy Additional Past Surgical History / Comment(s): lithotripsy; colonoscopies; cataracts, R breast lumpectomy, hemorrhoidectomy. Vaginal hysterectomy with unilateral oophorectomy 2002. Remaining ovary was removed in 2003. Bladder sling procedure. Colonoscopy 2017(next after 5yr). Past Anesthesia/Blood Transfusion Reactions: Motion Sickness, Postoperative Nausea & Vomiting (PONV) Past Psychological History: Anxiety, Depression Smoking Status: Never smoker Past Alcohol Use History: None Reported Past Drug Use History: None Reported Additional History: She is single and is not sexually active. She is retired from the [employer]. - Past Family History Father Family Medical History: Cancer, Diabetes Mellitus Additional Family Medical History / Comment(s): Colon cancer. Mother Family Medical History: Diabetes Mellitus, Myocardial Infarction ([place]) Sister(s) Family Medical History: Coronary Artery Disease (CAD), CVA/TIA, Myocardial Infarction ([place]) Brother(s) Family Medical History: Coronary Artery Disease (CAD) Medications and Allergies Home Medications and Allergies Comment(s): Temovate ointment 0.05% twice a day when necessary, and Premarin vaginal cream 1 g into the vagina 2 times weekly. Home Medications Medication Instructions Recorded Confirmed Type Aspirin 325 mg PO DAILY 01/12/16 03/30/21 History Benazepril HCl 20 mg PO DAILY 01/12/16 03/30/21 History Cyanocobalamin [Vitamin B-12 1,000 mcg SQ Q30D 01/12/16 03/30/21 History Injection] Docusate [Colace] 200 mg PO HS 01/12/16 03/30/21 History Ibandronate Sodium [Boniva] 150 mg PO Q28D 01/12/16 03/30/21 History Levothyroxine Sodium [Synthroid] 100 mcg PO DAILY 01/12/16 03/30/21 History Pantoprazole Sodium [Protonix] 40 mg PO HS 01/12/16 03/30/21 History Solifenacin Succinate [Vesicare] 10 mg PO DAILY@1200 01/12/16 03/30/21 History amLODIPine [Norvasc] 10 mg PO DAILY 01/12/16 03/30/21 History metFORMIN HCL [Glucophage] 1,000 mg PO BID 01/12/16 03/30/21 History polyethylene glycoL 3350 [Miralax] 25.5 gm PO DAILY 01/12/16 03/30/21 History Ferrous Gluconate 324 mg PO TID 05/18/17 03/30/21 History Pregabalin [Lyrica] 100 mg PO TID 06/20/18 03/30/21 History Alogliptin(Unknown Dose) 1 tab PO DAILY 03/20/19 03/30/21 History Artificial Tears Ointment 1 gm BOTH EYES HS 03/20/19 03/30/21 History [Lubrifresh Pm Ointment] Ascorbic Acid [Vitamin C] 2,000 mg PO DAILY@1200 03/20/19 03/30/21 History Calcium 315mg 315 mg PO TID 03/20/19 03/30/21 History Cholecalciferol (Vitamin D3) 4,000 unit PO DAILY@1200 03/20/19 03/30/21 History [Vitamin D3] Insulin Glargine,Hum.rec.anlog 16 unit SQ DAILY 03/20/19 03/30/21 History [Lantus Solostar] Insulin Glargine,Hum.rec.anlog 25 unit SQ HS 03/20/19 03/30/21 History [Lantus Solostar] Ondansetron [Zofran] 4 mg PO BID PRN 03/20/19 03/30/21 History Ozurdex Inj-Unknown 1 injection INTRAOCULA Q84D 03/20/19 03/30/21 History Simvastatin 80 mg PO HS 03/20/19 03/30/21 History Brimonidine Tartrate/Timolol 1 drop BOTH EYES BID 03/02/20 03/30/21 History [Combigan 0.2%-0.5% Eye Drops] Estrogens, Conjugated Cream 1 applicator VAGINAL DIRECTED 03/02/20 03/30/21 Rx [Premarin Cream] #1 tube Azelastine HCl [Optivar 0.05% 1 drop BOTH EYES DAILY 05/02/22 05/02/22 History Ophth Soln] Cetirizine HCl [Zyrtec] 10 mg PO DAILY 05/02/22 05/02/22 History Dicyclomine [Bentyl] 10 mg PO DAILY 05/02/22 05/02/22 History Levocetirizine Dihydrochloride 5 mg PO DAILY 05/02/22 05/02/22 History [Xyzal] Metoprolol Tartrate [Lopressor] 25 mg PO DAILY 05/02/22 05/02/22 History Polyvinyl Alcohol/Povidone [Clear 1 drop BOTH EYES DAILY 05/02/22 05/02/22 History Eyes Natural Tears Drop] Promethazine [Phenergan] 25 mg PO DAILY 05/02/22 05/02/22 History timoloL maleate [timoloL maleate 1 drop BOTH EYES DAILY 05/02/22 05/02/22 History 0.5% Gel] Allergies Allergy/AdvReac Type Severity Reaction Status Date / Time Sulfa (Sulfonamide AdvReac Rash/Hives Verified 05/02/22 10:41 Antibiotics) sulfamethoxazole AdvReac Rash/Hives Verified 05/02/22 10:41 [From Bactrim] trimethoprim [From Bactrim] AdvReac Rash/Hives Verified 05/02/22 10:41 Exam Vital Signs Temp Pulse Resp BP Pulse Ox 05/02/22 11:10 98.5 F 63 17 113/70 97 Intake and Output 05/01/22 05/02/22 05/02/22 22:59 06:59 14:59 Other: Weight 67.585 kg Height 5 feet 3 inches, weight 149 pounds, BMI 26.4. This is a well-developed well-nourished white female who is alert and oriented times 3 in no acute distress. HEENT: Within normal limits. NECK: Supple without mass or thyromegaly. CHEST AND LUNGS: Clear to auscultation. HEART: Regular rate and rhythm. BREASTS: Are without mass or discharge. AXILLARY EXAM: Negative for adenopathy. BACK: Negative for CVA tenderness. ABDOMEN: Soft, nontender, without palpable masses. PELVIC EXAM: External genitalia reveals moderate generalized atrophy as well as mild generalized pallor consistent with lichen sclerosus of the vulva. There are no focal lesions or signs of excoriation. The introitus is small. Vagina appears normal with moderate atrophy. There is no evidence of prolapse. Bimanual examination is negative for mass or tenderness. RECTAL EXAM: Rectovaginal exam is negative for mass or tenderness and is negative for occult blood. EXTREMITIES: Nontender. IMPRESSION: 1. 66-year-old menopausal female status post vaginal hysterectomy and BSO for benign reasons, with history of lichen sclerosus of the vulva controlled with infrequent Temovate ointment use. 2. History of osteopenia and has been on Boniva for more than 10 years through her PCP. PLAN: 1. Pap smears have been discontinued. 2. Self breast awareness was discussed with the patient. We have also discussed symptoms associated with inflammatory breast cancer. 3. Screening mammogram was done today. 4. Osteoporosis prevention was discussed. I have stressed the importance of adequate calcium, vitamin D and regular exercise. Recommended amounts of calcium and vitamin D were also discussed. She will continue treatment through her PCP and will also do bone density testing to her PCP. 5. Continue Temovate ointment 0.05% twice a day when necessary and Premarin vaginal cream 1 g into the vagina twice weekly. The prescriptions will be faxed to the [facility] in [place]. 6. She has completed her Covid vaccination series and has received 2 boosters. 7. She was advised to return in one year for her annual well woman exam and as needed.
--- NOTE | 2022-05-03 07:52 | MM ---
Reason for Exam: Screening (asymptomatic). Last mammogram was performed 1 year(s) and 1 month(s) ago. Patient History: Menarche at age 11. Patient has no children. Left ovary removed at age 48. Right ovary removed at age 48. Hysterectomy at age 48. Postmenopausal. Patient used Hormonal Contraceptives for 10 years. 1990, Benign Excisional Biopsy on the right side. Risk Values: Nayeli 5 year model risk: 2.2%. NCI Lifetime model risk: 7.2%. Prior Study Comparison: 12/27/2018 Bilateral Screening Mammogram, [facility]. 03/02/2020 Bilateral Screening Mammogram, [facility]. 03/09/2021 Bilateral Screening Mammogram, [facility]. Tissue Density: The breast tissue is heterogeneously dense. This may lower the sensitivity of mammography. Findings: Analyzed By CAD. There is no suspicious group of microcalcifications or new suspicious mass in either breast. Overall Assessment: Benign, BI-RAD 2 Management: Screening Mammogram of both breasts in 1 year. A clinical breast exam by your physician is recommended on an annual basis and results should be correlated with mammographic findings. Electronically signed and approved by: Kahlil Gilmore M.D. Radiologis
== END | disposition home or self-care (01) ==
LOC: RADMAMWWP 10:10
PROVIDERS: ATTEND Obstetrics & Gynecology
DX: Z12.31 Encounter for screening mammogram for malignant neoplasm of breast (principal); Z78.0 Asymptomatic menopausal state
CPT/HCPCS: 77067

== ENCOUNTER → 2022-05-03 | Outpatient (CLI) | payer MEDICARE, OTHER ==
--- NOTE | 2022-05-04 04:24 | MR ---
EXAMINATION TYPE: MR brain and iac wo/w con DATE OF EXAM: 05/03/2022 COMPARISON: None HISTORY: Right ear tinnitus, hearing loss, mastoiditis. CONTRAST: Standard multiplanar, multisequence MRI departmental protocol images were obtained without contrast a nd with 7 mL intravenous Gadavist gadolinium contrast. Ventricles have fairly normal size. There is no mass effect or midline shift. No sign of intracranial hemorrhage. There are scattered white matter high signal foci in both cerebral hemispheres that jenniffer ure up to 6 mm. Total number is approximately 15. These are more concentrated in the internal capsule bilaterally. There is a poorly marginated 1 cm area of slight increased signal in the central yajaira. The sella turcica is normal. No evidence of orbital mass. No significant cerebral atrophy. Diffusion images show no sign of an acute infarct. The internal auditory canals appear normal. No evidence of cerebellopontine angle mass. Acoustic nerv e and vestibular nerve appear normal. There is some mild increased fluid signal in the right mastoid sinus. Contrast images show no pathologic enhancement. IMPRESSION: White matter high signal foci could relate to microvascular ischemia or demyelinating disease. No sig nificant cerebral atrophy. There is evidence for some mild right-sided mastoiditis. No evidence of focal posterior fossa abnorma lity. Normal internal auditory canals.
== END | disposition home or self-care (01) ==
LOC: RADMRIMAIN 13:08
PROVIDERS: ATTEND Otolaryngology
DX: H93.19 Tinnitus, unspecified ear (principal); H91.90 Unspecified hearing loss, unspecified ear; H70.90 Unspecified mastoiditis, unspecified ear
CPT/HCPCS: 70553; A9585

== ENCOUNTER 2022-07-26 15:31 | Emergency (ER) | payer MEDICARE, OTHER ==
[2022-07-26 16:12] VITALS: BP 150/76; PULSE 86; RESP 18; TEMP 98.1
[2022-07-26] MEDS ORDERED: diphenhydrAMINE 50 MG/ML 1 ML VIAL IVP STA (18:29)
[2022-07-26] MEDS ORDERED: SODIUM CHLORIDE 0.9% 1,000 ML IV STA (18:29)
[2022-07-26] MEDS ORDERED: PROCHLORPERAZINE INJ 10 MG/2 ML VIAL IVP STA (18:29)
[2022-07-26] MEDS ORDERED: methylPREDNISolone SOD SUCCI 40 MG/ML 1 ML VIAL IV STA (18:30)
[2022-07-26] MEDS ORDERED: ACETAMINOPHEN TAB 500 MG TAB PO STA (18:30)
--- NOTE | 2022-07-26 19:16 | CT ---
EXAMINATION TYPE: CT brain wo con DATE OF EXAM: 07/26/2022 COMPARISON: 10/20/2021 HISTORY: headache CT DLP: 1051.4 mGycm Automated exposure control for dose reduction was used. Images of the brain obtained with no contrast. Ventricles have normal size. There is no mass effect nor midline shift. No sign of intracranial hemor rhage. There is mild cerebral atrophy. Calvarium is intact. IMPRESSION: Mild atrophy. No acute intracranial abnormality.
[2022-07-26] MEDS ORDERED: KETOROLAC 15 MG/ML 1 ML VIAL IVP STA (19:53)
[2022-07-26 20:06] LABS: Basophils % (A) 1 %; Eosinophils # (A) 0.5 k/uL (0-0.7); Eosinophils % (A) 6 %; HGB 12.8 gm/dL (11.4-16.0); Lymphocytes # (A) 1.7 k/uL (1.0-4.8); Lymphocytes % (A) 22 %; MCH 31.6 pg (25.0-35.0); MCHC 34.6 g/dL (31.0-37.0); MCV 91.4 fL (80.0-100.0); Mean Platelet Volume 9.3; Monocytes # (A) 0.5 k/uL (0-1.0); Monocytes % (A) 6 %; Neutrophils # (A) 4.9 k/uL (1.3-7.7); Neutrophils % (A) 63 %; Platelet Count 216 k/uL (150-450); RBC 4.04 m/uL (3.80-5.40); RDW 13.6 % (11.5-15.5); WBC 7.8 k/uL (3.8-10.6)
[2022-07-26 20:19] LABS: Calcium 9.1 mg/dL (8.4-10.2); Potassium 4.1 mmol/L (3.5-5.1)
--- NOTE | 2022-07-26 20:44 | ED ---
General Adult HPI - General Chief complaint: Headache Stated complaint: Headache,Ear Pain Time Seen by Provider: 07/26/22 18:05 Source: patient, RN notes reviewed, old records reviewed Mode of arrival: ambulatory - History of Present Illness Initial comments: Since last Sunday with extension to the base of her skull on the right side causing a headache. The headache has been present since Sunday. It is currently Sunday. She states she does have a history of multiple mini strokes that were undetected but seen on MRI. Endorses a history of hypertension, thyroid disease, diabetes. Denies any nausea, vomiting, chest pain, shortness of breath, weakness, numbness. Has no other neurological complaints at this time. States this is not the worst headache of her life. She is not on blood thinners. Denies trauma. Presents for evaluation due to the headache not really subsiding over the last few days. He is concerned it may be a stroke given her history, and having no symptoms previously but being told she said multiple mini strokes.Triage note states her pain, however patient denies any ear pain. States that his neck pain and headache. - Related Data Home Medications Medication Instructions Recorded Confirmed Aspirin 325 mg PO DAILY 01/12/16 05/02/22 Benazepril HCl 20 mg PO DAILY 01/12/16 05/02/22 Cyanocobalamin [Vitamin B-12 1,000 mcg SQ Q30D 01/12/16 05/02/22 Injection] Docusate [Colace] 200 mg PO HS 01/12/16 05/02/22 Ibandronate Sodium [Boniva] 150 mg PO Q28D 01/12/16 05/02/22 Levothyroxine Sodium [Synthroid] 100 mcg PO DAILY 01/12/16 05/02/22 Pantoprazole Sodium [Protonix] 40 mg PO HS 01/12/16 05/02/22 Solifenacin Succinate [Vesicare] 10 mg PO DAILY@1200 01/12/16 05/02/22 amLODIPine [Norvasc] 10 mg PO DAILY 01/12/16 05/02/22 metFORMIN HCL [Glucophage] 1,000 mg PO BID 01/12/16 05/02/22 polyethylene glycoL 3350 [Miralax] 25.5 gm PO DAILY 01/12/16 05/02/22 Ferrous Gluconate 324 mg PO TID 05/18/17 05/02/22 Pregabalin [Lyrica] 100 mg PO TID 06/20/18 05/02/22 Alogliptin(Unknown Dose) 1 tab PO DAILY 03/20/19 05/02/22 Artificial Tears Ointment 1 gm BOTH EYES HS 03/20/19 05/02/22 [Lubrifresh Pm Ointment] Ascorbic Acid [Vitamin C] 2,000 mg PO DAILY@1200 03/20/19 05/02/22 Calcium 315mg 315 mg PO TID 03/20/19 05/02/22 Cholecalciferol (Vitamin D3) 4,000 unit PO DAILY@1200 03/20/19 05/02/22 [Vitamin D3] Insulin Glargine,Hum.rec.anlog 16 unit SQ DAILY 03/20/19 05/02/22 [Lantus Solostar] Insulin Glargine,Hum.rec.anlog 25 unit SQ HS 03/20/19 05/02/22 [Lantus Solostar] Ondansetron [Zofran] 4 mg PO BID PRN 03/20/19 05/02/22 Ozurdex Inj-Unknown 1 injection INTRAOCULA Q84D 03/20/19 05/02/22 Simvastatin 80 mg PO HS 03/20/19 05/02/22 Brimonidine Tartrate/Timolol 1 drop BOTH EYES BID 03/02/20 05/02/22 [Combigan 0.2%-0.5% Eye Drops] Azelastine HCl [Optivar 0.05% 1 drop BOTH EYES DAILY 05/02/22 05/02/22 Ophth Soln] Cetirizine HCl [Zyrtec] 10 mg PO DAILY 05/02/22 05/02/22 Dicyclomine [Bentyl] 10 mg PO DAILY 05/02/22 05/02/22 Levocetirizine Dihydrochloride 5 mg PO DAILY 05/02/22 05/02/22 [Xyzal] Metoprolol Tartrate [Lopressor] 25 mg PO DAILY 05/02/22 05/02/22 Polyvinyl Alcohol/Povidone [Clear 1 drop BOTH EYES DAILY 05/02/22 05/02/22 Eyes Natural Tears Drop] Promethazine [Phenergan] 25 mg PO DAILY 05/02/22 05/02/22 timoloL maleate [timoloL maleate 1 drop BOTH EYES DAILY 05/02/22 05/02/22 0.5% Gel] Previous Rx's Medication Instructions Recorded Estrogens, Conjugated Cream 1 applicator VAGINAL DIRECTED 03/02/20 [Premarin Cream] #1 tube Allergies Allergy/AdvReac Type Severity Reaction Status Date / Time Sulfa (Sulfonamide AdvReac Rash/Hives Verified 07/26/22 16:12 Antibiotics) sulfamethoxazole AdvReac Rash/Hives Verified 07/26/22 16:12 [From Bactrim] trimethoprim [From Bactrim] AdvReac Rash/Hives Verified 07/26/22 16:12 Review of Systems ROS Statement: Those systems with pertinent positive or pertinent negative responses have been documented in the HPI. Review of Systems: CONST: Denies fever EYES: Denies blurry vision ENT: Denies nasal congestion C/V: Denies Chest pain RESP: Denies shortness of breath GI: Denies abdominal pain : Denies dysuria SKIN: Denies rash. MSK: Endorses right-sided neck pain. NEURO: Endorses headache ROS Other: All systems not noted in ROS Statement are negative. Past Medical History Past Medical History: CVA/TIA, Diabetes Mellitus, GERD/Reflux, Hyperlipidemia, Hypertension, Sleep Apnea/CPAP/BIPAP, Thyroid Disorder Additional Past Medical History / Comment(s): Type II diabetes, hypothyroidism, arthritis. kidney stones in the past; hx. non healing wounds R shoulder. Osteopenia and has used Boniva for greater than 10 years. 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 She has a history of lichen sclerosus of the vulva. History of Any Multi-Drug Resistant Organisms: MRSA Date of last positivie culture/infection: 2015 MDRO Source:: buttock Past Surgical History: Cholecystectomy, Hysterectomy, Tonsillectomy Additional Past Surgical History / Comment(s): lithotripsy; colonoscopies; cataracts, R breast lumpectomy, hemorrhoidectomy. Vaginal hysterectomy with unilateral oophorectomy 2002. Remaining ovary was removed in 2003. Bladder sling procedure. Colonoscopy 2017(next after 5yr). Past Anesthesia/Blood Transfusion Reactions: Motion Sickness, Postoperative Nausea & Vomiting (PONV) Past Psychological History: Anxiety, Depression Smoking Status: Never smoker Past Alcohol Use History: None Reported Past Drug Use History: None Reported - Past Family History Father Family Medical History: Cancer, Diabetes Mellitus Additional Family Medical History / Comment(s): Colon cancer. Mother Family Medical History: Diabetes Mellitus, Myocardial Infarction ([place]) Sister(s) Family Medical History: Coronary Artery Disease (CAD), CVA/TIA, Myocardial Infarction ([place]) Brother(s) Family Medical History: Coronary Artery Disease (CAD) General Exam - General Exam Comments Initial Comments: General: Appears in no acute distress. HEAD: Normal with no signs of head trauma. EYES: PERRLA, EOMI, conjunctiva normal, no discharge. Pupils 3 mm and equal bilaterally. ENT: Hearing grossly intact, normal oropharynx. RESPIRATORY: Clear breath sounds bilaterally. No wheezes, rales, or rhonchi. C/V: Regular rate and rhythm. S1 and S2 auscultated, peripheral pulses 2+ and intact throughout ABD: Abd is soft, nontender, nondistended EXT: Normal range of motion, no obvious deformity. Right sided paraspinal muscle tenderness to palpation in the right cervical spine. No midline cervical, thoracic, lumbar spine tenderness palpation. Extends to the base of the skull along the trapezius muscle. SKIN: No rashes or lesions observed on exposed skin. NEURO: Alert and oriented x 4. Cranial nerves II-XII intact. No focal sensory or strength deficits. NIH of 0. GCS of 15. Course Vital Signs 07/26/22 16:09 Temperature 98.1 F Pulse Rate 86 Respiratory 18 Rate Blood Pressure 150/76 O2 Sat by Pulse 98 Oximetry Medical Decision Making - Medical Decision Making Based on the patient's presentation and physical exam, she presents for what appears to be neck Strain as well as a associated headache secondary to trapezius muscle strain and pain. However she is concerned that it may be a stroke as she has a history of multiple undetected mini strokes per patient. We did discuss and we will obtain a CT brain in addition to basic labs but she will be treated with a migraine cocktail. She was in agreement this plan. Vital signs within acceptable limits. Laboratory studies are within acceptable limits. CT brain is interpreted by myself reveals no acute intracranial process. No hemorrhage, mass effect, midline shift. On reevaluation, patient's headache has resolved. She has no other acute complaints at this time. We discussed her workup and negative imaging. I do believe it is safer to be discharged home. She was in agreement this plan. Strict return precautions were discussed. I instructed the patient to follow up with their PCP in the next 1-3 days. I explained that the patient should return to the emergency department if they experience any worsening symptoms. Strict return precautions were discussed with the patient. The patient expressed understanding of these instructions. I answered all questions that the patient had. The patient was discharged home in good condition with their prescriptions and follow up information. - Lab Data Result diagrams: 07/26/22 18:58 07/26/22 18:58 Lab Results 07/26/22 07/26/22 Range/Units 18:58 18:58 WBC 7.8 (3.8-10.6) k/uL RBC 4.04 (3.80-5.40) m/uL Hgb 12.8 (11.4-16.0) gm/dL Hct 37.0 (34.0-46.0) % MCV 91.4 (80.0-100.0) fL MCH 31.6 (25.0-35.0) pg MCHC 34.6 (31.0-37.0) g/dL RDW 13.6 (11.5-15.5) % Plt Count 216 (150-450) k/uL MPV 9.3 Neutrophils % 63 % Lymphocytes % 22 % Monocytes % 6 % Eosinophils % 6 % Basophils % 1 % Neutrophils # 4.9 (1.3-7.7) k/uL Lymphocytes # 1.7 (1.0-4.8) k/uL Monocytes # 0.5 (0-1.0) k/uL Eosinophils # 0.5 (0-0.7) k/uL Basophils # 0.0 (0-0.2) k/uL Sodium 139 (137-145) mmol/L Potassium 4.1 (3.5-5.1) mmol/L Chloride 106 (98-107) mmol/L Carbon Dioxide 27 (22-30) mmol/L Anion Gap 6 mmol/L BUN 16 (7-17) mg/dL Creatinine 0.86 (0.52-1.04) mg/dL Est GFR (CKD-EPI)AfAm 81 (>60 ml/min/1.73 sqM) Est GFR (CKD-EPI)NonAf 70 (>60 ml/min/1.73 sqM) Glucose 128 H (74-99) mg/dL Calcium 9.1 (8.4-10.2) mg/dL Disposition Clinical Impression: Headache, Neck strain Disposition: HOME SELF-CARE Condition: Good Instructions (If sedation given, give patient instructions): Acute Headache (ED) Is patient prescribed a controlled substance at d/c from ED?: No Referrals: [facility],Clinic [Primary Care Provider] - 1-2 days Time of Disposition: 20:35
== END 2022-07-26 21:22 | disposition home or self-care (01) ==
LOC: EC 15:31
DX: S16.1XXA Strain of muscle, fascia and tendon at neck level, initial encounter (principal); R51.9 Headache, unspecified; E11.9 Type 2 diabetes mellitus without complications; K21.9 Gastro-esophageal reflux disease without esophagitis; E78.5 Hyperlipidemia, unspecified; I10 Essential (primary) hypertension; E03.9 Hypothyroidism, unspecified; M19.90 Unspecified osteoarthritis, unspecified site; Z88.2 Allergy status to sulfonamides; Z86.73 Personal history of transient ischemic attack (TIA), and cerebral infarction without residual deficits; Z88.1 Allergy status to other antibiotic agents; Z79.82 Long term (current) use of aspirin; Z79.890 Hormone replacement therapy; Z79.84 Long term (current) use of oral hypoglycemic drugs; Z79.899 Other long term (current) drug therapy; Z79.4 Long term (current) use of insulin; X58.XXXA Exposure to other specified factors, initial encounter
CPT/HCPCS: 36415; 80048; 85025; 70450; 99284; 96374; 96375; 96361; J1200; J0780; J2920; J1885

== ENCOUNTER → 2023-05-22 | Outpatient (CLI) | payer OTHER ==
[2023-05-22 12:56] VITALS: BP 102/66; PULSE 67; RESP 16; TEMP 98.2
--- NOTE | 2023-05-22 13:31 | P.HPOB ---
History of Present Illness H&P Date: 05/22/23 Chief Complaint: The patient is here for her routine gynecologic exam and ma mmogram. This is a 67-year-old G0 with an LMP of 2002. She is status post vaginal hysterectomy with BSO for benign reasons. She has a known history of suspected lichen sclerosus of the vulva and states this has been asymptomatic she has rarely needed the Temovate ointment. She is without gynecologic complaints. Review of Systems The patient has lost 6 pounds over the last year. She denies respiratory, cardiac, or G.I. problems. Past Medical History Past Medical History: CVA/TIA, Diabetes Mellitus, GERD/Reflux, Hyperlipidemia, Hypertension, Sleep Apnea/CPAP/BIPAP, Thyroid Disorder Additional Past Medical History / Comment(s): Type II diabetes, hypothyroidism, arthritis. kidney stones in the past; hx. non healing wounds R shoulder. Osteopenia and has used Boniva for greater than 10 years. 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 She has a history of lichen sclerosus of the vulva. History of Any Multi-Drug Resistant Organisms: MRSA Date of last positivie culture/infection: 2015 MDRO Source:: buttock Past Surgical History: Cholecystectomy, Hysterectomy, Tonsillectomy Additional Past Surgical History / Comment(s): lithotripsy; colonoscopies; cataracts, R breast lumpectomy, hemorrhoidectomy. Vaginal hysterectomy with unilateral oophorectomy 2002. Remaining ovary was removed in 2003. Bladder sling procedure. Colonoscopy 2017(next after 5yr). Past Anesthesia/Blood Transfusion Reactions: Motion Sickness, Postoperative Nausea & Vomiting (PONV) Past Psychological History: Anxiety, Depression (PHQ-2 score is 2) Smoking Status: Never smoker Past Alcohol Use History: None Reported Past Drug Use History: None Reported Additional History: She is a single and is not sexually active. She is retired from the [employer]. She is planning to move to [place]. - Past Family History Father Family Medical History: Cancer, Diabetes Mellitus Additional Family Medical History / Comment(s): Colon cancer. Mother Family Medical History: Diabetes Mellitus, Myocardial Infarction (AR) Sister(s) Family Medical History: Coronary Artery Disease (CAD), CVA/TIA, Myocardial I nfarction (AR) Brother(s) Family Medical History: Coronary Artery Disease (CAD) Medications and Allergies Home Medications Medication Instructions Recorded Confirmed Type Aspirin 325 mg PO DAILY 01/12/16 05/22/23 History Benazepril HCl 20 mg PO DAILY 01/12/16 05/22/23 History Cyanocobalamin [Vitamin B-12 1,000 mcg SQ Q30D 01/12/16 05/22/23 History Injection] Docusate [Colace] 200 mg PO HS 01/12/16 05/22/23 History Ibandronate Sodium [Boniva] 150 mg PO Q28D 01/12/16 05/22/23 History Levothyroxine Sodium [Synthroid] 100 mcg PO DAILY 01/12/16 05/22/23 History Pantoprazole Sodium [Protonix] 40 mg PO HS 01/12/16 05/22/23 History Solifenacin Succinate [Vesicare] 10 mg PO DAILY@1200 01/12/16 05/22/23 History amLODIPine [Norvasc] 10 mg PO DAILY 01/12/16 05/22/23 History metFORMIN HCL [Glucophage] 1,000 mg PO BID 01/12/16 05/22/23 History polyethylene glycoL 3350 [Miralax] 25.5 gm PO DAILY 01/12/16 05/22/23 History Ferrous Gluconate 324 mg PO TID 05/18/17 05/22/23 History Pregabalin [Lyrica] 100 mg PO TID 06/20/18 05/22/23 History Alogliptin(Unknown Dose) 1 tab PO DAILY 03/20/19 05/22/23 History Artificial Tears Ointment 1 gm BOTH EYES 03/20/19 05/22/23 History [Lubrifresh Pm Ointment] Ascorbic Acid [Vitamin C] 2,000 mg PO DAILY@1200 03/20/19 05/22/23 History Calcium 315mg 315 mg PO TID 03/20/19 05/22/23 History Cholecalciferol (Vitamin D3) 4,000 unit PO DAILY@1200 03/20/19 05/22/23 History [Vitamin D3] Insulin Glargine,Hum.rec.anlog 16 unit SQ DAILY 03/20/19 05/22/23 History [Lantus Solostar] Insulin Glargine,Hum.rec.anlog 25 unit SQ HS 03/20/19 05/22/23 History [Lantus Solostar] Ondansetron [Zofran] 4 mg PO BID PRN 03/20/19 05/22/23 History Ozurdex Inj-Unknown 1 injection INTRAOCULA Q84D 03/20/19 05/22/23 History Simvastatin [Zocor] 80 mg PO HS 03/20/19 05/22/23 History Brimonidine Tartrate/Timolol 1 drop BOTH EYES BID 03/02/20 05/22/23 History [Combigan 0.2%-0.5% Eye Drops] Estrogens, Conjugated Cream 1 applicator VAGINAL DIRECTED 03/02/20 05/22/23 Rx [Premarin Cream] #1 tube Azelastine HCl [Optivar 0.05% 1 drop BOTH EYES DAILY 05/02/22 05/22/23 History Ophth Soln] Cetirizine HCl [Zyrtec] 10 mg PO DAILY 05/02/22 05/22/23 History Dicyclomine [Bentyl] 10 mg PO DAILY 05/02/22 05/22/23 History Levocetirizine Dihydrochloride 5 mg PO DAILY 05/02/22 05/22/23 History [Xyzal] Metoprolol Tartrate [Lopressor] 25 mg PO DAILY 05/02/22 05/22/23 History Polyvinyl Alcohol/Povidone [Clear 1 drop BOTH EYES DAILY 05/02/22 05/22/23 History Eyes Natural Tears Drop] Promethazine [Phenergan] 25 mg PO DAILY 05/02/22 05/22/23 History timoloL maleate [timoloL maleate 1 drop BOTH EYES DAILY 05/02/22 05/22/23 History 0.5% Gel] Allergies Allergy/AdvReac Type Severity Reaction Status Date / Time Sulfa (Sulfonamide AdvReac Rash/Hives Verified 07/26/22 16:12 Antibiotics) sulfamethoxazole AdvReac Rash/Hives Verified 07/26/22 16:12 [From Bactrim] trimethoprim [From Bactrim] AdvReac Rash/Hives Verified 07/26/22 16:12 Exam Vital Signs Temp Pulse Resp BP Pulse Ox 05/22/23 12:48 98.2 F 67 16 102/66 99 Intake and Output 05/21/23 05/22/23 05/22/23 22:59 06:59 14:59 Other: Weight 64.864 kg Height 5 feet 3 inches, weight 143 pounds, BMI 25.3. This is a well-developed well-nourished white female who is alert and oriented times 3 in no acute distress. HEENT: Within normal limits. NECK: Supple without mass or thyromegaly. CHEST AND LUNGS: Clear to auscultation. HEART: Regular rate and rhythm. BREASTS: Are without mass or discharge. AXILLARY EXAM: Negative for adenopathy. BACK: Negative for CVA tenderness. ABDOMEN: Soft, nontender, without palpable masses. PELVIC EXAM: External genitalia reveals generalized mild pallor consistent with lichen sclerosus of the vulva. There are no focal lesions or areas of ulceration or excoriation. Vagina appears normal with mild to moderate atrophy. There is no evidence of prolapse. Bimanual examination is negative for mass or tenderness. RECTAL EXAM: Rectovaginal exam is negative for mass or tenderness and is negative for occult blood. EXTREMITIES: Nontender. IMPRESSION: 1. 67-year-old menopausal female status post vaginal hysterectomy with BSO for benign reasons, with stable lichen sclerosus of the vulva. 2. History of osteopenia status post more than 10 years use of Boniva through her PCP. PLAN: 1. Pap smears have been discontinued. 2. Self breast awareness was discussed with the patient. We have also discussed symptoms associated with inflammatory breast cancer. 3. Screening mammogram will be done today. 4. Osteoporosis prevention was discussed. I have stressed the importance of adequate calcium, vitamin D and regular exercise. Recommended amounts of calcium and vitamin D were also discussed. Treatment with Boniva and bone density testing will be done through her PCP as she has done in the past. 5. Temovate 0.05% ointment twice a day as needed for vulvar itching. The patient has requested that a paper prescription for this be sent to Olivia Bailey PA-C at the [facility]. This will be faxed to her. 6. She was advised to return in one year for her annual well woman exam or establish with an NITROGLYCERIN SEPARATOR OPERATOR in [place] for reevaluation of her lichen sclerosus of the vulva in approximately 1 year.
--- NOTE | 2023-05-24 09:25 | MM ---
Reason for Exam: Screening (asymptomatic). Last mammogram was performed 1 year(s) and 1 month(s) ago. Patient History: Menarche at age 11. Patient has no children. Left ovary removed at age 48. Right ovary removed at age 48. Hysterectomy at age 48. Postmenopausal. Patient used Hormonal Contraceptives for 10 years. 1990, Benign Excisional Biopsy on the right side. Risk Values: Nayeli 5 year model risk: 2.3%. NCI Lifetime model risk: 6.9%. Prior Study Comparison: 03/02/2020 Bilateral Screening Mammogram, [facility]. 03/09/2021 Bilateral Screening Mammogram, [facility]. 05/02/2022 Bilateral MG screening mammo w CAD, [facility]. Tissue Density: The breast tissue is heterogeneously dense. This may lower the sensitivity of mammography. Findings: Analyzed By CAD. There is no suspicious group of microcalcifications or new suspicious mass in either breast. Overall Assessment: Negative, BI-RAD 1 Management: Screening Mammogram of both breasts in 1 year. . Patient should continue monthly self-breast exams. A clinical breast exam by your physician is recommended on an annual basis. This exam should not preclude additional follow-up of suspicious palpable abnormalities. Note on Nayeli scores and lifetime risk: 1. A Nayeli score greater than 3% is considered moderate risk. If this is the case, consider specialist referral to assess eligibility for a risk reducing agent. 2. If overall lifetime risk for the development of breast cancer is 20% or higher, the patient may qualify for future screening with alternating mammogram and breast MRI. Electronically signed and approved by: Kahlil Gilmore M.D. Radiologis
== END ==
LOC: WWCWWP 12:26
PROVIDERS: ATTEND Obstetrics & Gynecology
DX: Z01.419 Encounter for gynecological examination (general) (routine) without abnormal findings (principal); E03.9 Hypothyroidism, unspecified; E78.5 Hyperlipidemia, unspecified; G47.30 Sleep apnea, unspecified; I10 Essential (primary) hypertension; K21.9 Gastro-esophageal reflux disease without esophagitis; L90.0 Lichen sclerosus et atrophicus; M85.80 Other specified disorders of bone density and structure, unspecified site; Z79.82 Long term (current) use of aspirin; Z12.31 Encounter for screening mammogram for malignant neoplasm of breast; Z79.84 Long term (current) use of oral hypoglycemic drugs; Z79.890 Hormone replacement therapy; Z86.73 Personal history of transient ischemic attack (TIA), and cerebral infarction without residual deficits; Z87.442 Personal history of urinary calculi; Z88.1 Allergy status to other antibiotic agents; Z88.2 Allergy status to sulfonamides; Z90.49 Acquired absence of other specified parts of digestive tract; Z90.710 Acquired absence of both cervix and uterus; Z79.4 Long term (current) use of insulin; Z79.899 Other long term (current) drug therapy; Z78.0 Asymptomatic menopausal state
CPT/HCPCS: 77067